=== PATIENT | female | born 1950 | race Caucasian/White ===

== ENCOUNTER 2016-11-15 20:46 | Inpatient (IN) | payer OTHER ==
[2016-11-15] VITALS (16 sets, daily range): BP systolic 100–147; BP diastolic 52–98; PULSE 44–88; RESP 18–22; TEMP 97.6; O2SAT 96–99
[~2016-11-15] VITALS: Ht 157.5 cm; Wt 69.0 kg
[~2016-11-15 20:46] MED LIST: AMBI10TA PO; DIOV80TA4 PO; PROZ20CA11 PO
[2016-11-15] MEDS ORDERED: SODIUM CHLOR 0.9% 1000 ML INJ 1,000 ML IV SCH (21:12)
[2016-11-15] MEDS ORDERED: ONDANSETRON HCL 4 MG/2 ML VIAL IVP ONE (21:15)
[2016-11-15] MEDS ORDERED: HYDROmorphone HCL PF 2 MG/ML VIAL IVS ONE (21:15)
[2016-11-15] MEDS ORDERED: SODIUM CHLORIDE 0.9% FLUSH 5 ML FLUSH IVF PRN (21:15)
--- NOTE | 2016-11-15 21:29 | PD ---
HPI Chief Complaint: Flank/Kidney Pain Time Seen by Provider: 21:12 Travel History International Travel<30 days: No Contact w/Intl Traveler<30days: No History of Present Illness HPI Patient is a 66 year old female who presents to ER with c/o of left sided flank pain. Pt reports that flank pain began a few hours prior to presentation to ER. Patient reports that her pain has been constant, nonradiating in nature. Patient reports that she has had history of kidney stones in the past, reports that her symptoms feel similar to today's symptoms. Patient reports that she feels nauseous with her symptoms. Reports that she noticed some blood in her urine today as well. Patient denies fevers or chills at this time. Patient denies dysuria, urinary urgency or frequency. Patient reports that when she has had kidney stones in the past, she has passed all her stones and did not require urologic interventions PFSH Past Medical History Anxiety: Yes Depression: Yes Diminished Hearing: No Hypertension: Yes Kidney Stones: Yes Immunizations Current: Yes Menopausal: Yes : 1 Para: 1 Tubal Ligation: Yes Past Surgical History Hysterectomy: Yes (PARTIAL, OOPHRECTOMY) Tonsillectomy: Yes Other Surgery: Yes (OOPHERECTOMY) Family History Family History: Negative Social History Alcohol Use: No Tobacco Use: No Substance Use: No Allergies-Medications (Allergen,Severity, Reaction): Coded Allergies: No Known Allergies (Verified , 11/15/16) Reported Meds & Prescriptions Reported Meds & Active Scripts Active Reported Zolpidem (Zolpidem Tartrate) 5 Mg Tab 5 Mg PO HS PRN Valsartan 80 Mg Tab 80 Mg PO DAILY Fluoxetine (Fluoxetine HCl) 20 Mg Cap 20 Mg PO DAILY Review of Systems Gastrointestinal: Positive: Nausea, Other (left sided flank pain), No: Abdominal Pain Genitourinary: Positive: Hematuria, No: Urgency, Frequency, Dysuria Physical Exam Narrative GENERAL: patient in moderate distress SKIN: Warm and dry. HEAD: Atraumatic. Normocephalic. EYES: Pupils equal and round. No scleral icterus. No injection or drainage. ENT: No nasal bleeding or discharge. Mucous membranes pink and moist. NECK: Trachea midline. No JVD. CARDIOVASCULAR: Regular rate and rhythm. No murmur appreciated. RESPIRATORY: No accessory muscle use. Clear to auscultation. Breath sounds equal bilaterally. GASTROINTESTINAL: Abdomen soft, non-tender, nondistended. left sided flank pain MUSCULOSKELETAL: No obvious deformities. No clubbing. No cyanosis. No edema. NEUROLOGICAL: Awake and alert. No obvious cranial nerve deficits. Motor grossly within normal limits. Normal speech. PSYCHIATRIC: Appropriate mood and affect; insight and judgment normal. Data Data Last Documented VS Vital Signs Date Time Temp Pulse Resp B/P Pulse Ox O2 Delivery O2 Flow Rate FiO2 11/15/16 22:10 96 3.00 11/15/16 21:13 20 11/15/16 20:53 97.6 88 146/98 Orders Complete Blood Count With Diff (11/15/16 21:12) Comprehensive Metabolic Panel (11/15/16 21:12) Prothrombin Time / Inr (Pt) (11/15/16 21:12) Act Partial Throm Time (Ptt) (11/15/16 21:12) Urinalysis - C+S If Indicated (11/15/16 21:12) Ct Abd/Pel W/O Iv Contrast (11/15/16 21:12) Iv Access Insert/Monitor (11/15/16 21:12) Hydromorphone Pf Inj (Dilaudid Pf Inj) (11/15/16 21:15) Ondansetron Inj (Zofran Inj) (11/15/16 21:15) Sodium Chlor 0.9% 1000 Ml Inj (Ns 1000 M (11/15/16 21:12) Sodium Chloride 0.9% Flush (Ns Flush) (11/15/16 21:15) Electrocardiogram (11/15/16 22:17) B-Type Natriuretic Peptide (11/15/16 22:17) Chest, Single Ap (11/15/16 22:17) Blood Culture (11/15/16 22:23) Naloxone Inj (Narcan Inj) (11/15/16 22:30) Ckmb (Isoenzyme) Profile (11/15/16 21:40) Troponin I (11/15/16 21:40) Ecg Monitoring (11/15/16 22:27) Oximetry (11/15/16 22:27) Oxygen Administration (11/15/16 22:27) Sodium Chlor 0.9% 1000 Ml Inj (Ns 1000 M (11/15/16 22:45) Ct Brain W/O Iv Contrast(Rout) (11/15/16 22:35) CKMB (11/15/16 21:40) CKMB% (11/15/16 21:40) Aspirin Supp (Aspirin Supp) (11/15/16 23:00) Labs Laboratory Tests Test 11/15/16 21:40 White Blood Count 12.5 TH/MM3 Red Blood Count 3.84 MIL/MM3 Hemoglobin 11.8 GM/DL Hematocrit 35.4 % Mean Corpuscular Volume 92.1 FL Mean Corpuscular Hemoglobin 30.8 PG Mean Corpuscular Hemoglobin 33.5 % Concent Red Cell Distribution Width 12.1 % Platelet Count 268 TH/MM3 Mean Platelet Volume 7.7 FL Neutrophils (%) (Auto) 85.8 % Lymphocytes (%) (Auto) 6.2 % Monocytes (%) (Auto) 7.3 % Eosinophils (%) (Auto) 0.2 % Basophils (%) (Auto) 0.5 % Neutrophils # (Auto) 10.7 TH/MM3 Lymphocytes # (Auto) 0.8 TH/MM3 Monocytes # (Auto) 0.9 TH/MM3 Eosinophils # (Auto) 0.0 TH/MM3 Basophils # (Auto) 0.1 TH/MM3 CBC Comment DIFF FINAL Differential Comment Prothrombin Time 11.2 SEC Prothromb Time International 1.0 RATIO Ratio Activated Partial 30.9 SEC Thromboplast Time Sodium Level 143 MEQ/L Potassium Level 3.8 MEQ/L Chloride Level 108 MEQ/L Carbon Dioxide Level 25.4 MEQ/L Anion Gap 10 MEQ/L Blood Urea Nitrogen 23 MG/DL Creatinine 1.00 MG/DL Estimat Glomerular Filtration 56 ML/MIN Rate Random Glucose 111 MG/DL Calcium Level 8.1 MG/DL Total Bilirubin 0.3 MG/DL Aspartate Amino Transf 13 U/L (AST/SGOT) Alanine Aminotransferase 14 U/L (ALT/SGPT) Alkaline Phosphatase 80 U/L Total Creatine Kinase 102 U/L Creatine Kinase MB 0.9 NG/ML Troponin I 0.05 NG/ML Total Protein 6.3 GM/DL Albumin 3.1 GM/DL MDM Medical Decision Making Medical Screen Exam Complete: Yes Emergency Medical Condition: Yes Interpretation(s) Vital Signs Date Time Temp Pulse Resp B/P Pulse Ox O2 Delivery O2 Flow Rate FiO2 11/15/16 21:13 20 11/15/16 20:53 97.6 88 22 146/98 99 Differential Diagnosis kidney stone, pyelonephritis, musculoskeletal pain Narrative Course Patient is a 66-year-old female who presents to emergency room with complaints of left sided flank pain. Onset of pain was a few hours prior to presentation to emergency room. Patient with history of kidney stones in the past. Patient comfortable on evaluation, IV was placed upon arrival to emergency room. Patient given IV pain medications as well as nausea medications as well as IV fluids. CBC, BMP, UA ordered as well as CT abdomen and pelvis for further evaluation of symptoms. Patient returned from CAT scan and was talking to her daughter. Daughter reports that patient stopped talking and turned blue. RN and staff at bedside, patient was in PEA arrest. CPR initiated and patient was Bagged. After 45 seconds of being bagged, patient had spontaneous regain of pulses, after patient began to breath spontaneously, narcan 0.4 mg was given to patient as I was not sure if patient had this event because of reaction to Dilaudid 1mg given for pain 50 minute prior to cardiac arrest. Patient at this time c/o of chest pain. EKG obtained. Pt with NSR at 87bpm, qt/qtc: 330/377, pt with st seg depression lateral leads. BS was in the 130's case reviewed with Dr. Fox Nieto who accepts pt to his service at [facility] ICU Patient re-evaluated. Patient is alert and oriented x 3. Patient reports "I just don't feel well." Discussed with patient need for admission to [facility] ICU. Patient agreeable to admission Critical Care Narrative Aggregate critical care time was 35 minutes. Time to perform other separately billable procedures was not included in the critical care time. My time did not include minutes spent treating any other patients simultaneously or on activities that did not directly contribute to the patient's treatment. The services I provided to this patient were to treat and/or prevent clinically significant deterioration that could result in: , decompensation, deterioration I provided critical care services requiring my management, as noted below: Chart data review, documentation time, medication orders and management, vital sign assessments/reviewing monitor data, ordering and reviewing lab tests, ordering and interpreting/reviewing x-rays and diagnostic studies, care of the patient and discussion of the patient with the admitting physicians. Diagnosis Primary Impression: Successful cardiopulmonary resuscitation Additional Impression: Kidney stone on left side Admitting Information Admitting Physician Requests: Admit Rosa Isela Iglesias DO Nov 15, 2016 21:29
--- NOTE | 2016-11-15 21:47 | RADHPO ---
EXAM DATE/TIME: 11/15/2016 21:25 [facility] COMPARISON: No previous studies available for comparison. INDICATIONS : Left flank pain with hematuria. ORAL CONTRAST: No oral contrast ingested. RADIATION DOSE: 12.63 CTDIvol (mGy) MEDICAL HISTORY : Hypertension. Renal calculi. SURGICAL HISTORY : Tubal ligation. Hysterectomy. Oophorectomy. ENCOUNTER: Initial ACUITY: 1 day PAIN SCALE: 7/10 LOCATION: Left flank TECHNIQUE: Volumetric scanning of the abdomen and pelvis was performed. Using automated exposure control and ad justment of the mA and/or kV according to patient size, radiation dose was kept as low as reasonably achievable to obtain optimal diagnostic quality images. FINDINGS: The lung bases are clear. The portion of the liver and spleen identified are free of focal defects. The pancreas and adrenal glands are unremarkable. RIGHT KIDNEY: The right kidney is unremarkable. LEFT KIDNEY: Left kidney is large with one nonobstructing stone in the pelvis. There is prominence to the left ur eter extending down to the distal third of the left ureter where there is a 4 mm partially obstructin g stone. Pelvic contents are otherwise unremarkable. CONCLUSION: 4 mm partially obstructing stone distal third of the ureter just above the UVJ. Rico Muñoz MD FACR on November 15, 2016 at 21:39 Board Certified Radiologist. This report was verified electronically.
[2016-11-15] MEDS ORDERED: VALS1TAB64 PO (21:52)
[2016-11-15] MEDS ORDERED: FLUO20CA4 PO (21:52)
[2016-11-15] MEDS ORDERED: ZOLP5TAB3 PO (21:52)
[2016-11-15 21:56] LABS: AUTOMATED NEUTROPHIL # 10.7 TH/MM3 (1.8-7.7); BASOPHIL # 0.1 TH/MM3 (0-0.2); BASOPHIL % 0.5 % (0.0-2.0); EOSINOPHIL % 0.2 % (0.0-4.0); HEMATOCRIT 35.4 % (35.0-46.0); LYMPH % 6.2 % (9.0-44.0); LYMPHOCYTE # 0.8 TH/MM3 (1.0-4.8); MEAN CELL VOLUME 92.1 FL (80.0-100.0); MEAN CORPUSCULAR HEMOGLOBIN 30.8 PG (27.0-34.0); MEAN CORPUSCULAR HGB CONC 33.5 % (32.0-36.0); MONO % 7.3 % (0.0-8.0); NEUT % 85.8 % (16.0-70.0); PLATELET COUNT 268 TH/MM3 (150-450); RED BLOOD COUNT 3.84 MIL/MM3 (4.00-5.30); RED CELL DISTRIBUTION WIDTH 12.1 % (11.6-17.2); WHITE BLOOD COUNT 12.5 TH/MM3 (4.0-11.0)
[2016-11-15 22:01] LABS: HEMO FLAGS DIFF FINAL
[2016-11-15 22:05] LABS: CHLORIDE 108 MEQ/L (98-107); POTASSIUM 3.8 MEQ/L (3.5-5.1); SODIUM (NA) 143 MEQ/L (136-145)
[2016-11-15 22:08] LABS: ANION GAP 10 MEQ/L (5-15); BICARBONATE 25.4 MEQ/L (21.0-32.0); BLOOD UREA NITROGEN 23 MG/DL (7-18)
[2016-11-15 22:12] LABS: ALT (GPT) 14 U/L (10-53); AST (GOT) 13 U/L (15-37); GLOMERULAR FILTRATION RATE 56 ML/MIN (>89)
[2016-11-15 22:13] LABS: APTT (PATIENT) 30.9 SEC (24.3-30.1); PROTHROMBIN TIME - PATIENT 11.2 SEC (9.8-11.6); TOTAL BILIRUBIN ADULT 0.3 MG/DL (0.2-1.0)
[2016-11-15 22:15] LABS: ALKALINE PHOSPHATASE 80 U/L (45-117)
[2016-11-15] MEDS ORDERED: NALOXONE HCL 0.4 MG/ML AMP IV PUSH ONE (22:30)
[2016-11-15 22:39] LABS: CREATINE KINASE 102 U/L (26-192)
--- NOTE | 2016-11-15 22:43 | RADHPO ---
EXAM DATE/TIME: 11/15/2016 22:19 [facility] COMPARISON: No previous studies available for comparison. INDICATIONS : Chest pain. MEDICAL HISTORY : Hypertension. SURGICAL HISTORY : None. ENCOUNTER: Initial ACUITY: 1 day PAIN SCORE: 11/11 LOCATION: Bilateral chest FINDINGS: A single view of the chest demonstrates the lungs to be symmetrically aerated without evidence of mas s, infiltrate or effusion. The cardiomediastinal contours are unremarkable. Degenerative changes ar e present about both shoulders. CONCLUSION: No acute disease. Rico Muñoz MD FACR on November 15, 2016 at 22:41 Board Certified Radiologist. This report was verified electronically.
[2016-11-15] MEDS ORDERED: SODIUM CHLOR 0.9% 1000 ML INJ 1,000 ML IV ONE (22:45)
[2016-11-15 22:51] LABS: CKMB 0.9 NG/ML (0.5-3.6)
--- NOTE | 2016-11-15 22:53 | RADHPO ---
EXAM DATE/TIME: 11/15/2016 22:35 [facility] COMPARISON: CT BRAIN W/O CONTRAST, May 07, 2015, 12:26. INDICATIONS : Post-code cardiac arrest. No trauma. RADIATION DOSE: 60.63 CTDIvol (mGy) MEDICAL HISTORY : Hypertension. Renal calculi. SURGICAL HISTORY : Hysterectomy. Tubal ligation.Tonsillectomy. ENCOUNTER: Initial ACUITY: 1 day PAIN SCALE: 0/10 LOCATION: cranial TECHNIQUE: Multiple contiguous axial images were obtained of the head. Using automated exposure control and adj ustment of the mA and/or kV according to patient size, radiation dose was kept as low as reasonably a chievable to obtain optimal diagnostic quality images. FINDINGS: CEREBRUM: The ventricles are normal for age. No evidence of midline shift, mass lesion, hemorrhage or acute in farction. No extra-axial fluid collections are seen. POSTERIOR FOSSA: The cerebellum and brainstem are intact. The 4th ventricle is midline. The cerebellopontine angle i s unremarkable. EXTRACRANIAL: The visualized portion of the orbits is intact. SKULL: The calvaria is intact. No evidence of skull fracture. Minimal left maxillary sinus disease is evid ent. CONCLUSION: Negative for acute process. Rico Muñoz MD FACR on November 15, 2016 at 22:51 Board Certified Radiologist. This report was verified electronically.
[2016-11-15] MEDS ORDERED: ASPIRIN 300 MG SUPP RECTAL ONE (23:00)
[2016-11-15 23:07] LABS: BLOOD, URINE LARGE (NEG); GLUCOSE,URINE NEG (NEG); KETONE, URINE NEG (NEG); NITRITE,URINE NEG (NEG)
--- NOTE | 2016-11-15 23:24 | HHI.HP ---
HPI Service Critical Care Medicine Primary Care Physician Gamaliel Adam MD Admission Diagnosis s/p cardiac arrest Diagnosis: Chief Complaint: Left flank pain (Left ureteral stone) Travel History International Travel<30 Days: No Contact w/Intl Traveler <30 Da: No History of Present Illness 66 y/o woman presented to [facility] ED with flank pain. CT shows obstructing distal left ureteral stone. Sustained PEA arrest after returning from CT scan, required 45 secs to restore perfusion rhythm. No signs of allergic reaction. Head CT normal, CXR clear after arrest. Trop, BNP normal. Noteworthy is that she participated in a 3 mile organized walk earlier today in [place] and appeared dehydrated on arrival to ED. She states she was short of breath when she arrived to the ED well before her cardiac arrest. Making arrangements to transfer to [facility]. She has passed kidney stones 3 times before. Past Family Social History Allergies: Coded Allergies: Dilaudid (Verified Allergy, Severe, cardiac arrest, 11/16/16) Past Medical History Past Medical History Anxiety: Yes Depression: Yes Diminished Hearing: No Hypertension: Yes Kidney Stones: Yes Immunizations Current: Yes Menopausal: Yes : 1 Para: 1 Tubal Ligation: Yes Past Surgical History Hysterectomy: Yes (PARTIAL, OOPHRECTOMY) Tonsillectomy: Yes Other Surgery: Yes (OOPHERECTOMY) Family History Family History: Negative Social History Alcohol Use: No Tobacco Use: No Substance Use: No Allergies-Medications Allergies-Medications (Allergen,Severity, Reaction): Coded Allergies: No Known Allergies (Verified , 11/15/16) Reported Meds & Prescriptions Reported Meds & Active Scripts Active Reported Zolpidem (Zolpidem Tartrate) 5 Mg Tab 5 Mg PO HS PRN Valsartan 80 Mg Tab 80 Mg PO DAILY Fluoxetine (Fluoxetine HCl) 20 Mg Cap 20 Mg PO DAILY Physical Exam Vital Signs Vital Signs Date Time Temp Pulse Resp B/P Pulse Ox O2 Delivery O2 Flow Rate FiO2 11/15/16 22:10 96 3.00 11/15/16 21:13 20 11/15/16 21:12 95 Nasal Cannula 2 11/15/16 20:53 97.6 88 22 146/98 99 Physical Exam P 82, BP 146, 78, R 16, Sats 97% Head: Atraumatic, sunburn to nose. Neck: Supple, airway widely patent. Lungs: Clear, no wheezes or crackles. Comfortable pattern. Chest: Tenderness over sternum. Heart: NL S1S2, no mr, No JVD. RRR. Abdomen: Soft, nontender, nondistended. Benign. Extremities: Warm, well perfused. No edema. Neuro: O X 3, alert, good memory. Amnesic for arrest. Moves 4 limbs to command. GAVIN. EOMs intact. Laboratory Laboratory Tests Test 11/15/16 21:40 White Blood Count 12.5 Red Blood Count 3.84 Hemoglobin 11.8 Hematocrit 35.4 Mean Corpuscular Volume 92.1 Mean Corpuscular Hemoglobin 30.8 Mean Corpuscular Hemoglobin 33.5 Concent Red Cell Distribution Width 12.1 Platelet Count 268 Mean Platelet Volume 7.7 Neutrophils (%) (Auto) 85.8 Lymphocytes (%) (Auto) 6.2 Monocytes (%) (Auto) 7.3 Eosinophils (%) (Auto) 0.2 Basophils (%) (Auto) 0.5 Neutrophils # (Auto) 10.7 Lymphocytes # (Auto) 0.8 Monocytes # (Auto) 0.9 Eosinophils # (Auto) 0.0 Basophils # (Auto) 0.1 CBC Comment DIFF FINAL Differential Comment Prothrombin Time 11.2 Prothromb Time International 1.0 Ratio Activated Partial 30.9 Thromboplast Time Sodium Level 143 Potassium Level 3.8 Chloride Level 108 Carbon Dioxide Level 25.4 Anion Gap 10 Blood Urea Nitrogen 23 Creatinine 1.00 Estimat Glomerular Filtration 56 Rate Random Glucose 111 Calcium Level 8.1 Total Bilirubin 0.3 Aspartate Amino Transf 13 (AST/SGOT) Alanine Aminotransferase 14 (ALT/SGPT) Alkaline Phosphatase 80 Total Creatine Kinase 102 Creatine Kinase MB 0.9 Troponin I 0.05 B-Type Natriuretic Peptide 25 Total Protein 6.3 Albumin 3.1 Date/Time Procedure Status Source Growth 11/15/16 22:55 Aerobic Blood Culture Received Blood Peripheral Pending 11/15/16 22:55 Anaerobic Blood Culture Received Blood Peripheral Pending Result Diagram: 11/15/16213911/15/162139 Assessment and Plan Problem List: (1) Kidney stone on left side ICD Code: N20.0 Status: Acute (2) Successful cardiopulmonary resuscitation ICD Code: Z92.89 Status: Acute Assessment and Plan Assessment: 1. Obstructing left ureteral stone. 2. Cardiac arrest with rapid successful resuscitation. 3. Hx of kidney stones. 4. Moderate dehydration. Plan: 1. Transfer to [facility]. 2. IV abx coverage. 3. Aggressive hydration. 4. heparin bid. 5. Protonix. 6. Serial cardiac markers. 7. Cardiac ECHO. 8. EKG. 9. Urology Consult in a.m. Overall impression: Successful and quick resuscitation from cardiac arrest. Trop , BNP normal. No chest pain aside from sternal tenderness. Her SOB well before the arrest may be an angina variant. Will check markers and ECHO. May benefit from Cardiology evaluation; certainly if anesthetic is planned for stone removal. Fox Nieto MD Nov 15, 2016 23:24
[2016-11-15 23:26] LABS: METHOD OF COLLECTION VOIDED; URINE COLOR DARK-YELLOW (YELLW/STRAW)
[2016-11-15 23:27] LABS: BACTERIA, URINE RARE /hpf; COMMENT (UR) CULT NOT INDICATED; CULTURE IF INDICATED CULT NOT INDICATED; RBC, URINE INNUM /hpf (0-3); SQUAMOUS EPITHELIAL CELL URINE 0-2 /hpf (0-5); WBC, URINE 0-2 /hpf (0-5)
[2016-11-15] MEDS ORDERED: METOPROLOL TARTRATE 25 MG TAB PO SCH (23:30)
[2016-11-15] MEDS ORDERED: MISCELLANEOUS NURSING INFORMATION XX SCH (23:30)
[2016-11-15] MEDS ORDERED: ONDANSETRON HCL 4 MG/2 ML VIAL IV PRN (23:30)
[2016-11-15] MEDS ORDERED: CHLORHEXIDINE GLUCONATE 2 % 1 PACK (2 CLOTHS) TOP PRN (23:30)
[2016-11-15] MEDS ORDERED: cefTRIAXone INJ 2,000 MG in SODIUM CHLORIDE 0.9% INJ 100 ML IV SCH ×9 (23:30→23:45)
[2016-11-15] MEDS ORDERED: RESP: ALBUTEROL 2.5 MG/IPRATROPIUM 0.5 MG NEB (PRN) INH (23:30)
[2016-11-15] MEDS ORDERED: ACETAMINOPHEN/HYDROcodone 325 MG/5 MG TAB PO PRN (23:45)
[2016-11-15] MEDS ORDERED: cefTRIAXone INJ 2,000 MG in SODIUM CHLORIDE 0.9% INJ 100 ML IV ONE (23:45)
[2016-11-16] VITALS (15 sets, daily range): BP systolic 96–160; BP diastolic 58–89; PULSE 51–82; RESP 14–22; TEMP 98–98.3; O2SAT 94–99
[2016-11-16] MEDS: METOPROLOL TARTRATE 25 MG TAB PO SCH ×3 (01:30→21:00)
[2016-11-16] MEDS: ZOLPIDEM TARTRATE 5 MG TAB PO PRN ×2 (01:45→23:01)
[2016-11-16] MEDS: CHLORHEXIDINE GLUCONATE 2 % 1 PACK (2 CLOTHS) TOP SCH (04:00)
[2016-11-16] MEDS: HEPARIN SODIUM - SQ 10,000 UNITS/ML VIAL SQ SCH ×3 (05:44→22:22)
[2016-11-16] MEDS: SODIUM CHLOR 0.9% 1000 ML INJ 1,000 ML IV SCH ×3 (06:06→22:24)
[2016-11-16] MEDS: KETOROLAC TROMETHAMINE 30 MG/ML (IVP) VIAL IM PRN (08:34)
[2016-11-16] MEDS: PANTOPRAZOLE SOD 40 MG DELAYED RELEASE TAB PO SCH (08:35)
[2016-11-16] MEDS: SODIUM CHLORIDE 0.9% FLUSH 5 ML FLUSH IV FLUSH SCH ×2 (08:35→22:23)
[2016-11-16] MEDS: FLUoxetine HCL 20 MG CAP PO SCH (08:35)
[2016-11-16] MEDS: VALSARTAN 80 MG TAB PO SCH (08:35)
[2016-11-16 11:01] LABS: AUTOMATED NEUTROPHIL # 5.7 TH/MM3 (1.8-7.7); BASOPHIL % 0.3 % (0.0-2.0); EOSINOPHIL # 0.1 TH/MM3 (0-0.4); EOSINOPHIL % 0.7 % (0.0-4.0); HEMATOCRIT 33.8 % (35.0-46.0); HEMO FLAGS DIFF FINAL; LYMPH % 12.3 % (9.0-44.0); LYMPHOCYTE # 0.9 TH/MM3 (1.0-4.8); MEAN CELL VOLUME 94.7 FL (80.0-100.0); MEAN CORPUSCULAR HEMOGLOBIN 31.2 PG (27.0-34.0); MONO % 12.3 % (0.0-8.0); NEUT % 74.4 % (16.0-70.0); PLATELET COUNT 197 TH/MM3 (150-450); RED BLOOD COUNT 3.57 MIL/MM3 (4.00-5.30); RED CELL DISTRIBUTION WIDTH 12.8 % (11.6-17.2); WHITE BLOOD COUNT 7.7 TH/MM3 (4.0-11.0)
[2016-11-16 11:13] LABS: BICARBONATE 26.5 MEQ/L (21.0-32.0); MAGNESIUM 1.8 MG/DL (1.5-2.5); POTASSIUM 4.2 MEQ/L (3.5-5.1)
--- NOTE | 2016-11-16 14:39 | PD.CONS ---
[facility] Service Urology Consult Requested By Reason for Consult Obstructing left ureteral calculus Primary Care Physician Gamaliel Adam MD Diagnosis: History of Present Illness 66-year-old female with history recurrent nephrolithiasis who presented to the emergency room with complaints of acute onset left flank pain. CT scan demonstrated an approximately 4 mm left distal ureteral calculus causing hydroureteronephrosis. Upon return from CT scanning the patient went into cardiac arrest and was successfully resuscitated. She was then transferred to the ICU for intense monitoring. At the time of consultation the patient was awake and alert with pain well controlled. She was complaining of pressure involving the left lower flank region. She denied dysuria or gross hematuria. Upon further questioning the patient reports that she has passed multiple stones in the past spontaneously. I reviewed the actual CT scan and in addition to the obstructing ureteral stone a small 2-3mm stone involving the left kidney was also noted. There were no stones involving the right kidney. Patient did have a Douglas catheter in place draining yellow urine. Review of Systems Constitutional: DENIES: Fever, Chills Cardiovascular: DENIES: Chest pain Gastrointestinal: COMPLAINS OF: Abdominal pain (left lower quadrant) Genitourinary: DENIES: Hematuria, Dysuria Musculoskeletal: COMPLAINS OF: Back pain (left lower flank) Other All other systems negative Past Family Social History Past Medical History Anxiety/depression Recurrent nephrolithiasis Hypertension Past Surgical History Status post hysterectomy and partial oophorectomy Status post tonsillectomy Reported Medications Refer to EMR Allergies: Coded Allergies: Dilaudid (Verified Allergy, Severe, cardiac arrest, 11/16/16) Active Ordered Medications Refer to EMR Family History Reviewed and noncontributory Social History Denies tobacco, alcohol or intravenous drug abuse Physical Exam Vital Signs Vital Signs Date Time Temp Pulse Resp B/P Pulse Ox O2 Delivery O2 Flow Rate FiO2 11/16/16 12:00 98.3 66 19 147/71 99 11/16/16 12:00 66 11/16/16 10:15 Nasal Cannula 2.00 11/16/16 10:00 58 11/16/16 08:00 98.1 66 19 160/82 97 11/16/16 08:00 55 11/16/16 07:00 98 Nasal Cannula 2.00 11/16/16 06:00 58 11/16/16 04:00 98.0 57 14 96/58 97 11/16/16 04:00 57 1/15/17 02:00 72 11/16/16 01:00 98.0 82 16 141/89 98 11/16/16 01:00 98 Nasal Cannula 2.00 11/16/16 01:00 80 11/16/16 00:20 88 20 105/59 98 11/16/16 00:00 80 20 108/59 98 Nasal Cannula 4 11/15/16 23:40 80 20 112/62 98 Nasal Cannula 4 11/15/16 23:20 84 20 108/60 98 11/15/16 23:10 86 20 100/52 98 11/15/16 23:00 88 20 110/62 98 11/15/16 22:50 72 18 120/67 98 Nasal Cannula 4 11/15/16 22:45 72 18 124/72 98 11/15/16 22:40 78 18 118/68 98 Nasal Cannula 4 11/15/16 22:35 65 18 124/72 96 Nasal Cannula 4 11/15/16 22:25 72 20 116/72 98 11/15/16 22:20 59 20 112/71 98 Nasal Cannula 4 11/15/16 22:15 62 20 118/74 97 Nasal Cannula 4 11/15/16 22:11 44 20 110/59 98 Nasal Cannula 4 11/15/16 22:10 96 3.00 11/15/16 22:00 84 20 132/76 97 Room Air 11/15/16 21:30 76 20 147/87 99 11/15/16 21:13 20 11/15/16 21:12 95 Nasal Cannula 2 11/15/16 20:53 97.6 88 22 146/98 99 Physical Exam GENERAL: This is a well-nourished, well-developed patient, in no apparent distress. SKIN: No rashes, ecchymoses or lesions. Cool and dry. HEAD: Atraumatic. Normocephalic. No temporal or scalp tenderness. EYES: Pupils equal round and reactive. Extraocular motions intact. No scleral icterus. No injection or drainage. ENT: Nose without bleeding, purulent drainage or septal hematoma. Throat without erythema, tonsillar hypertrophy or exudate. Uvula midline. Airway patent. NECK: Trachea midline. No JVD or lymphadenopathy. Supple, nontender, no meningeal signs. GASTROINTESTINAL: Abdomen soft, non-tender, nondistended. No hepato-splenomegaly , or palpable masses. No guarding. : No CVA tenderness. Douglas in place draining yellow urine. MUSCULOSKELETAL: Extremities without clubbing, cyanosis, or edema. No joint tenderness, effusion, or edema noted. No calf tenderness. Negative Homans sign bilaterally. NEUROLOGICAL: Awake and alert. Cranial nerves II through XII intact. Motor and sensory grossly within normal limits. Five out of 5 muscle strength in all muscle groups. Normal speech. Laboratory Laboratory Tests Test 11/15/16 11/15/16 11/16/16 11/16/16 21:40 22:50 00:20 01:00 White Blood Count 12.5 Red Blood Count 3.84 Hemoglobin 11.8 Hematocrit 35.4 Mean Corpuscular Volume 92.1 Mean Corpuscular Hemoglobin 30.8 Mean Corpuscular Hemoglobin 33.5 Concent Red Cell Distribution Width 12.1 Platelet Count 268 Mean Platelet Volume 7.7 Neutrophils (%) (Auto) 85.8 Lymphocytes (%) (Auto) 6.2 Monocytes (%) (Auto) 7.3 Eosinophils (%) (Auto) 0.2 Basophils (%) (Auto) 0.5 Neutrophils # (Auto) 10.7 Lymphocytes # (Auto) 0.8 Monocytes # (Auto) 0.9 Eosinophils # (Auto) 0.0 Basophils # (Auto) 0.1 CBC Comment DIFF FINAL Differential Comment Prothrombin Time 11.2 Prothromb Time International 1.0 Ratio Activated Partial 30.9 Thromboplast Time Sodium Level 143 Potassium Level 3.8 Chloride Level 108 Carbon Dioxide Level 25.4 Anion Gap 10 Blood Urea Nitrogen 23 Creatinine 1.00 Estimat Glomerular Filtration 56 Rate Random Glucose 111 Calcium Level 8.1 Total Bilirubin 0.3 Aspartate Amino Transf 13 (AST/SGOT) Alanine Aminotransferase 14 (ALT/SGPT) Alkaline Phosphatase 80 Total Creatine Kinase 102 Creatine Kinase MB 0.9 Troponin I 0.05 0.07 B-Type Natriuretic Peptide 25 Total Protein 6.3 Albumin 3.1 Urine Collection Type VOIDED Urine Color DARK-YELLOW Urine Turbidity SLIGHT Urine pH 6.0 Urine Specific [place] 1.012 Urine Protein 30 Urine Glucose (UA) NEG Urine Ketones NEG Urine Occult Blood LARGE Urine Nitrite NEG Urine Bilirubin NEG Urine Leukocyte Esterase NEG Urine RBC INNUM Urine WBC 0-2 Urine Squamous Epithelial 0-2 Cells Urine Bacteria RARE Microscopic Urinalysis Comment CULT NOT INDICATED Nasal Screen MRSA (PCR) NEGATIVE Test 11/16/16 10:34 White Blood Count 7.7 Red Blood Count 3.57 Hemoglobin 11.1 Hematocrit 33.8 Mean Corpuscular Volume 94.7 Mean Corpuscular Hemoglobin 31.2 Mean Corpuscular Hemoglobin 33.0 Concent Red Cell Distribution Width 12.8 Platelet Count 197 Mean Platelet Volume 8.0 Neutrophils (%) (Auto) 74.4 Lymphocytes (%) (Auto) 12.3 Monocytes (%) (Auto) 12.3 Eosinophils (%) (Auto) 0.7 Basophils (%) (Auto) 0.3 Neutrophils # (Auto) 5.7 Lymphocytes # (Auto) 0.9 Monocytes # (Auto) 0.9 Eosinophils # (Auto) 0.1 Basophils # (Auto) 0.0 CBC Comment DIFF FINAL Differential Comment Sodium Level 145 Potassium Level 4.2 Chloride Level 114 Carbon Dioxide Level 26.5 Anion Gap 5 Blood Urea Nitrogen 19 Creatinine 0.99 Estimat Glomerular Filtration 56 Rate Random Glucose 88 Lactic Acid Level 1.2 Calcium Level 7.6 Phosphorus Level 3.1 Magnesium Level 1.8 Troponin I 0.13 Date/Time Procedure Status Source Growth 11/15/16 22:55 Aerobic Blood Culture - Preliminary Resulted Blood Peripheral NO GROWTH IN 1 DAY 11/15/16 22:55 Anaerobic Blood Culture - Preliminary Resulted Blood Peripheral NO GROWTH IN 1 DAY Result Diagram: 11/16/16 1034 11/16/[address] scan with findings as outlined above Assessment and Plan Assessment and Plan Urologic impression: #1 4 mm obstructing left distal ureteral calculus that should pass spontaneously #2 nonobstructing small left renal calculus Recommendations: #1 continue with analgesic support #2 strain all urine #3 Flomax 0.4 mg by mouth daily #4 KUB tomorrow morning #5 May require ureteroscopic stone extraction if stone fails to pass with conservative management Hernandez Carpio MD Nov 16, 2016 14:39
[2016-11-16] MEDS: TAMSULOSIN HCL 0.4 MG CAP PO SCH (14:51)
--- NOTE | 2016-11-16 15:30 | HHI.CCPN ---
Subjective Remarks/Hospital Course 66 y/o woman presented to [facility] ED with flank pain. CT shows obstructing distal left ureteral stone. Sustained PEA arrest after returning from CT scan, required 45 secs to restore perfusion rhythm. No signs of allergic reaction. Head CT normal, CXR clear after arrest. Trop, BNP normal. Noteworthy is that she participated in a 3 mile organized walk earlier today in [place] and appeared dehydrated on arrival to ED. She states she was short of breath when she arrived to the ED well before her cardiac arrest. Making arrangements to transfer to [facility]. Objective Vital Signs Date Time Temp Pulse Resp B/P Pulse Ox O2 Delivery O2 Flow Rate FiO2 11/16/16 14:00 57 11/16/16 12:00 98.3 19 147/71 99 11/16/16 10:15 Nasal Cannula 2.00 Result Diagram: 11/16/16 1034 11/16/16 1034 Objective Remarks P 82, BP 146, 78, R 16, Sats 97% Head: Atraumatic, sunburn to nose. Neck: Supple, airway widely patent. Lungs: Clear, no wheezes or crackles. Comfortable pattern. Chest: Tenderness over sternum. Heart: NL S1S2, no mr, No JVD. RRR. Abdomen: Soft, nontender, nondistended. Benign. Extremities: Warm, well perfused. No edema. Neuro: O X 3, alert, good memory. Amnesic for arrest. Moves 4 limbs to command. GAVIN. EOMs intact. A/P Problem List: (1) Kidney stone on left side ICD Code: N20.0 Status: Acute (2) Successful cardiopulmonary resuscitation ICD Code: Z92.89 Status: Acute Assessment and Plan Assessment: Obstructing left ureteral stone. - IV abx coverage. - Aggressive hydration - Urology evaluationm - pain control (NSAIDs) Cardiac arrest with rapid successful resuscitation - not clear if ever pals less - cardiac enzyme - EKG w/o ischemic changes - Echo - Cardiology evaluation JENNIFER - dehydration - i.v. fluids Overall impression: Successful and quick resuscitation from cardiac arrest. Trop , BNP normal. No chest pain aside from sternal tenderness. Her SOB well before the arrest may be an angina variant. Will check markers and ECHO. May benefit from Cardiology evaluation; certainly if anesthetic is planned for stone removal. Level 3 Dameon Clarke MD Nov 16, 2016 15:30
--- NOTE | 2016-11-16 16:46 | EC ---
Study Study Date:11/16/2016 STUDY CONCLUSIONS SUMMARY - Left ventricle: The cavity size was normal. Wall thickness was normal. Systolic function was normal. The estimated ejection fraction was in the range of 50% to 55%. Wall motion was normal; there were no regional wall motion abnormalities. - Mitral valve: Mild regurgitation. - Tricuspid valve: Mild regurgitation. - Pulmonary arteries: Systolic pressure was mildly increased. PA peak pressure: 41mm Hg (S). If LV function is below 40, please consider prescribing an ACEI or ARB or document rationale for non-use. PROCEDURE DATA STUDY STATUS: Elective. Procedure: Transthoracic echocardiography. Image quality was good. Scanning was performed from the parasternal, apical, and subcostal acoustic windows. Study completion: The patient tolerated the procedure well. Transthoracic echocardiography. M-mode, complete 2D, complete spectral Doppler, and color Doppler. Patient status: Inpatient. CARDIAC ANATOMY LEFT VENTRICLE: The cavity size was normal. Wall thickness was normal. Systolic function was normal. The estimated ejection fraction was in the range of 50% to 55%. Wall motion was normal; there were no regional wall motion abnormalities. AORTIC VALVE: Trileaflet; normal thickness leaflets. Doppler: Transvalvular velocity was within the normal range. There was no stenosis. No regurgitation. AORTA: Aortic root: The aortic root was normal in size. MITRAL VALVE: Structurally normal valve. Doppler: Transvalvular velocity was within the normal range. There was no evidence for stenosis. Mild regurgitation. LEFT ATRIUM: The atrium was normal in size. RIGHT VENTRICLE: The cavity size was normal. Wall thickness was normal. PULMONIC VALVE: Doppler: Transvalvular velocity was within the normal range. There was no evidence for stenosis. Trace regurgitation. TRICUSPID VALVE: Structurally normal valve. Doppler: Transvalvular velocity was within the normal range. Mild regurgitation. PULMONARY ARTERY: The main pulmonary artery was normal-sized. Systolic pressure was mildly increased. RIGHT ATRIUM: The atrium was normal in size. PERICARDIUM: There was no pericardial effusion. SYSTEMIC VEINS: Inferior vena cava: The vessel was normal in size. DOPPLER MEASUREMENTS ADULT NORMAL Main pulmonary artery Pressure, S *41 mm Hg =30 LEGEND: Mean values are shown as u=mean value. Asterisk (*) torrez values outside specified normal range. Prepared and signed by Ovidio Gomez [id number]
--- NOTE | 2016-11-16 17:17 | MB ---
cc: STACIA LEAL MD DATE OF CONSULTATION: 11/16/2016. REASON FOR CONSULTATION: Status post PEA arrest. HISTORY OF PRESENT ILLNESS: The patient is a very pleasant 66-year-old woman with no prior cardiac history who did have periodic shortness of breath for which she was treated with an metered dose inhaler from her pulmonary doctor. She was in the [place] emergency room being treated for kidney stones when by report she turned blue, lost her pulses and a code blue was initiated. I am trying to piece together the sequence of events from the chart and as best I can tell, she did not have any change in her rhythm ,only a loss of consciousness with loss of palpable pulses consistent with PEA. After being bagged with CPR, she regained consciousness. Narcan was also given as she did receive Demerol some time prior to the event. Following resuscitation, she generally felt unwell and had sternal tenderness from the CPR but no specific symptoms. Currently she feels well, denying any symptoms at all such as chest pain, shortness of breath, lightheadedness or dizziness but did admit to occasional shortness of breath as I detailed above. PAST MEDICAL HISTORY: Negative for cardiac history including negative history for syncopal episodes. CURRENT MEDICATIONS: 1. Valsartan 80 milligrams daily. 2. Prozac 20 milligrams daily. 3. Lopressor 25 milligrams q. 12. ALLERGIES: DILAUDID. PHYSICAL EXAMINATION: VITAL SIGNS: Afebrile, pulse 66, respiratory rate 19, blood pressure 147/71 and satting 99 on two liters. GENERAL: A pleasant well-appearing woman in no distress. NECK: No jugular venous distention. LUNGS: Clear to auscultation bilaterally. CARDIOVASCULAR: Regular rate and rhythm. No murmurs appreciated. ABDOMEN: Benign. EXTREMITIES: No edema. LABORATORY DATA: Sodium 145, potassium 4.2, chloride 114, bicarb 26.5, BUN 19, creatinine 0.99, glucose 88. Troponin is 0.07, 0.13. BNP is 25. EKGS: EKG showed sinus rhythm with nonspecific ST changes. IMAGING STUDIES: Head CT was negative. IMPRESSION: PEA arrest: The patient had a PEA arrest for unclear reasons. I suppose it is possible she had a severe vagal response to pain, though more typically we would see decreased heart rates due to an isolated drop in her blood pressure. Other possibilities are a medication reaction. I think it is reasonable to exclude cardiac pathology with a stress test and echocardiogram, which will be ordered. Further recommendations will be based on her clinical course. Thank you again for the opportunity to participate in this patient's care. MD ADELITA Patino/RACHAEL /1:39 PM /5:05 PM
[2016-11-16] MEDS ORDERED: cefTRIAXone INJ 2,000 MG in SODIUM CHLORIDE 0.9% INJ 100 ML IV SCH (23:00)
[2016-11-16] MEDS: ACETAMINOPHEN 325 MG TAB PO PRN (23:01)
[2016-11-17] MEDS: SODIUM CHLOR 0.9% 1000 ML INJ 1,000 ML IV SCH ×2 (02:13→15:26)
[2016-11-17 02:34] VITALS: O2SAT 95
[2016-11-17 02:50] VITALS: BP 109/57; PULSE 61; RESP 16; TEMP 96.9; O2SAT 95
[2016-11-17] MEDS: CHLORHEXIDINE GLUCONATE 2 % 1 PACK (2 CLOTHS) TOP SCH (04:00)
[2016-11-17] MEDS: HEPARIN SODIUM - SQ 10,000 UNITS/ML VIAL SQ SCH ×3 (06:00→21:02)
[2016-11-17 06:03] LABS: BASOPHIL % 0.3 % (0.0-2.0); EOSINOPHIL # 0.1 TH/MM3 (0-0.4); EOSINOPHIL % 1.3 % (0.0-4.0); HEMO FLAGS DIFF FINAL; LYMPH % 18.7 % (9.0-44.0); LYMPHOCYTE # 1.7 TH/MM3 (1.0-4.8); MEAN CELL VOLUME 94.8 FL (80.0-100.0); MEAN CORPUSCULAR HEMOGLOBIN 30.7 PG (27.0-34.0); MEAN CORPUSCULAR HGB CONC 32.4 % (32.0-36.0); MONO % 12.8 % (0.0-8.0); NEUT % 66.9 % (16.0-70.0); PLATELET COUNT 173 TH/MM3 (150-450); RED CELL DISTRIBUTION WIDTH 13.1 % (11.6-17.2); WHITE BLOOD COUNT 8.9 TH/MM3 (4.0-11.0)
[2016-11-17 06:36] LABS: ALKALINE PHOSPHATASE 61 U/L (45-117); ALT (GPT) 84 U/L (10-53); ANION GAP 9 MEQ/L (5-15); AST (GOT) 59 U/L (15-37); BICARBONATE 23.1 MEQ/L (21.0-32.0); BLOOD UREA NITROGEN 23 MG/DL (7-18); CHLORIDE 114 MEQ/L (98-107); GLOMERULAR FILTRATION RATE 35 ML/MIN (>89); MAGNESIUM 1.8 MG/DL (1.5-2.5); POTASSIUM 4.3 MEQ/L (3.5-5.1); SODIUM (NA) 146 MEQ/L (136-145); TOTAL BILIRUBIN ADULT 0.2 MG/DL (0.2-1.0)
[2016-11-17 08:00] VITALS: BP 131/82; PULSE 68; RESP 18; TEMP 97.1; O2SAT 92
[2016-11-17] MEDS ORDERED: REGADENOSON INJ 0.4 MG/5 ML SYR ONE (08:55)
--- NOTE | 2016-11-17 09:16 | RADRPT ---
EXAM DATE/TIME: 11/17/2016 08:06 [facility] COMPARISON: No previous studies available for comparison. INDICATIONS : Left flank pain MEDICAL HISTORY : Hypertension. Renal calculi. SURGICAL HISTORY : tubal ligation, hysterectomy, oophorectomy ENCOUNTER: Subsequent ACUITY: 2 days PAIN SCORE: 0/10 LOCATION: Left abdomen FINDINGS: Supine view of the abdomen was performed. The abdominal bowel gas pattern is normal. No abnormal ma sses, calcifications, or organomegaly is seen. The osseous structures are unremarkable. CONCLUSION: 1. No renal stones are identified. Ajay Swenson MD on November 17, 2016 at 9:14 Board Certified Radiologist. This report was verified electronically.
[2016-11-17] MEDS ORDERED: PNEUMOCOCCAL POLYVALENT INJ 25 MCG/0.5 ML SYR IM ONE (10:00)
[2016-11-17] MEDS: SODIUM CHLORIDE 0.9% FLUSH 5 ML FLUSH IV FLUSH SCH ×2 (10:28→21:02)
[2016-11-17] MEDS: PANTOPRAZOLE SOD 40 MG DELAYED RELEASE TAB PO SCH (10:29)
[2016-11-17] MEDS: FLUoxetine HCL 20 MG CAP PO SCH (10:29)
[2016-11-17] MEDS: VALSARTAN 80 MG TAB PO SCH (10:30)
[2016-11-17] MEDS: TAMSULOSIN HCL 0.4 MG CAP PO SCH (10:30)
[2016-11-17] MEDS: METOPROLOL TARTRATE 25 MG TAB PO SCH ×2 (10:36→21:01)
--- NOTE | 2016-11-17 10:47 | RADRPT ---
EXAM DATE/TIME: 11/17/2016 08:31 [facility] COMPARISON: No previous studies available for comparison. INDICATIONS : Cardiac arrest. Presented with dyspnea then lost consciousness and palpable pulse requiring CPR to be administered. Abnormal EKG. DOSE: 8.7 mCi Tc99m Myoview at stress. 25.7 mCi Tc99m Myoview at rest. 0.4 mg Lexiscan STRESS SYMPTOMS: Headache. EJECTION FRACTION: 67% MEDICAL HISTORY : Hypertension. SURGICAL HISTORY : Hysterectomy. Tubal ligation. Tonsillectomy. ENCOUNTER: Initial ACUITY: 1 day PAIN SCALE: 0/10 LOCATION: chest TECHNIQUE: The patient underwent pharmacologic stress with infusion of prescribed dose. Continuous ECG tracing was monitored during stress. Gated SPECT imaging was performed after stress and conventional SPECT i maging was performed at rest. The examination was performed on a SPECT/CT scanner, both attenuation and non-corrected datasets were reviewed. FINDINGS: The best perfused myocardium in the anterior wall followed by the septum. There is no evidence for s tress-induced ischemia. Ejection fraction is 67% with normal wall motion. CONCLUSION: Negative for stress-induced ischemia.. RISK CATEGORY: Low (<1% Annual Mortality Rate) Rico Muñoz MD FACR on November 17, 2016 at 10:43 Board Certified Radiologist. This report was verified electronically.
--- NOTE | 2016-11-17 10:53 | PD.CARD.PN ---
Subjective Subjective Remarks Pt feels well, but obviously very concerned about the events that transpired. Objective Medications Administered Medications Medications (Trade) Dose Ordered Sig/Yunior Route PRN Reason Start Time Stop Time Status Last Admin Dose Admin Sodium Chloride (NS 1000 ml Inj) 1,000 ml @ 100 mls/hr Q10H IV 11/15/16 23:26 11/17/16 02:13 IV Flush (NS Flush) 2 ml BID IV FLUSH 11/16/16 09:00 11/17/16 10:28 Acetaminophen (Tylenol) 650 mg Q6H PRN PO PAIN 1-10 AND/OR FEVER >101F 11/15/16 23:30 11/16/16 23:01 Fentanyl Citrate (fentaNYL INJ) 50 mcg Q1H PRN IV PUSH Pain scale 6-10 &/or sedation 11/15/16 23:30 11/16/16 12:48 Pantoprazole Sodium (Protonix) 40 mg DAILY PO 11/16/16 09:00 11/17/16 10:29 Ondansetron HCl (Zofran Inj) 4 mg Q6H PRN IV NAUSEA OR VOMITING 11/15/16 23:30 11/16/16 12:47 Heparin Sodium (Porcine) 5000 units 5,000 units Q8HR SQ 11/16/16 06:00 11/16/16 22:22 Ceftriaxone Sodium/Sodium Chloride (Rocephin Inj/NS Inj) 100 ml @ 200 mls/hr Q24H IV 11/16/16 23:00 11/16/16 22:23 Fluoxetine HCl (PROzac) 20 mg DAILY PO 11/16/16 09:00 11/17/16 10:29 Valsartan (Diovan) 80 mg DAILY PO 11/16/16 09:00 11/17/16 10:30 Zolpidem Tartrate (Ambien) 5 mg HS PRN PO INSOMNIA 11/16/16 01:15 11/16/16 23:01 Metoprolol Tartrate (Lopressor) 25 mg Q12HR PO 11/16/16 01:30 11/17/16 10:36 Ketorolac Tromethamine (Toradol Inj) 30 mg Q6H PRN IM PAIN SCALE 1 TO 5 11/16/16 08:30 11/16/16 08:34 Tamsulosin HCl (Flomax) 0.4 mg DAILY PO 11/16/16 15:00 11/17/16 10:30 Vital Signs / I&O Vital Signs Date Time Temp Pulse Resp B/P Pulse Ox O2 Delivery O2 Flow Rate FiO2 11/17/16 08:00 97.1 68 18 131/82 92 11/17/16 02:50 96.9 61 16 109/57 95 11/17/16 02:34 95 Nasal Cannula 2.00 11/16/16 22:00 56 11/16/16 20:44 95 Nasal Cannula 2.00 11/16/16 20:00 58 11/16/16 20:00 98.1 58 22 119/74 94 11/16/16 19:00 95 Nasal Cannula 4.00 11/16/16 18:00 51 11/16/16 16:00 98.3 54 19 131/61 97 11/16/16 16:00 54 11/16/16 14:00 57 11/16/16 12:00 98.3 66 19 147/71 99 11/16/16 12:00 66 I/O 11/16/16 11/16/16 11/16/16 11/17/16 11/17/16 11/17/16 07:00 15:00 23:00 07:00 15:00 23:00 Intake Total 1960 ml 1054 ml 1085 ml 310 ml Output Total 600 ml 200 ml 175 ml 275 ml Balance 1360 ml 854 ml 910 ml 35 ml Intake Oral 60 ml 120 ml 250 ml 0 ml IV Total 1900 ml 934 ml 835 ml 310 ml Output Urine Total 600 ml 200 ml 175 ml 275 ml # Bowel Movements 0 0 1 0 Physical Exam GENERAL: This is a well-nourished, well-developed patient, in no apparent distress. CARDIOVASCULAR: Regular rate and rhythm without murmurs, gallops, or rubs. RESPIRATORY: Clear to auscultation. Breath sounds equal bilaterally. No wheezes , rales, or rhonchi. GASTROINTESTINAL: Abdomen soft, non-tender, nondistended. Normal active bowel sounds MUSCULOSKELETAL: Extremities without clubbing, cyanosis, or edema. NEURO: Alert & Oriented x4 to person, place, time, situation. Moves all ext x4 Laboratory Laboratory Tests Test 11/17/16 05:11 White Blood Count 8.9 TH/MM3 Red Blood Count 3.70 MIL/MM3 Hemoglobin 11.3 GM/DL Hematocrit 35.0 % Mean Corpuscular Volume 94.8 FL Mean Corpuscular Hemoglobin 30.7 PG Mean Corpuscular Hemoglobin 32.4 % Concent Red Cell Distribution Width 13.1 % Platelet Count 173 TH/MM3 Mean Platelet Volume 8.4 FL Neutrophils (%) (Auto) 66.9 % Lymphocytes (%) (Auto) 18.7 % Monocytes (%) (Auto) 12.8 % Eosinophils (%) (Auto) 1.3 % Basophils (%) (Auto) 0.3 % Neutrophils # (Auto) 6.0 TH/MM3 Lymphocytes # (Auto) 1.7 TH/MM3 Monocytes # (Auto) 1.1 TH/MM3 Eosinophils # (Auto) 0.1 TH/MM3 Basophils # (Auto) 0.0 TH/MM3 CBC Comment DIFF FINAL Differential Comment Sodium Level 146 MEQ/L Potassium Level 4.3 MEQ/L Chloride Level 114 MEQ/L Carbon Dioxide Level 23.1 MEQ/L Anion Gap 9 MEQ/L Blood Urea Nitrogen 23 MG/DL Creatinine 1.51 MG/DL Estimat Glomerular Filtration 35 ML/MIN Rate Random Glucose 90 MG/DL Calcium Level 7.7 MG/DL Phosphorus Level 3.1 MG/DL Magnesium Level 1.8 MG/DL Total Bilirubin 0.2 MG/DL Aspartate Amino Transf 59 U/L (AST/SGOT) Alanine Aminotransferase 84 U/L (ALT/SGPT) Alkaline Phosphatase 61 U/L Total Protein 5.5 GM/DL Albumin 2.6 GM/DL Imaging Last Impressions Abdomen X-Ray 11/17/16 0600 Signed Impressions: Service Date/Time: Thursday, November 17, 2016 08:06 - CONCLUSION: 1. No renal stones are identified. Ajay Swenson MD Head CT 11/15/162234 Signed Impressions: Service Date/Time: Tuesday, November 15, 2016 22:35 - CONCLUSION: Negative for acute process. Rico Muñoz MD FACR Chest X-Ray 11/15/[id number] Signed Impressions: Service Date/Time: Tuesday, November 15, 2016 22:19 - CONCLUSION: No acute disease. Rico Muñoz MD FACR Abdomen/Pelvis CT 11/15/162111 Signed Impressions: Service Date/Time: Tuesday, November 15, 2016 21:25 - CONCLUSION: 4 mm partially obstructing stone distal third of the ureter just above the UVJ. Rico Muñoz MD FACR Assessment and Plan Problem List: (1) Cardiac arrest Assessment and Plan: very unclear what happened, testing thus far unremarkable , normal LVEF, nuc stress results pending but do not expect them to be positive. Will plan for a loop recorder (syncope) tomorrow, pt agrees with this plan. (2) Successful cardiopulmonary resuscitation Ovidio Gomez MD Nov 17, 2016 10:53
[2016-11-17 12:00] VITALS: BP 152/85; PULSE 67; RESP 18; TEMP 97.7; O2SAT 98
--- NOTE | 2016-11-17 13:30 | HHI.PR ---
Subjective Remarks PT c/o blood tinged urine. No chest pain. No SOB Objective Vitals Vital Signs Date Time Temp Pulse Resp B/P Pulse Ox O2 Delivery O2 Flow Rate FiO2 11/17/16 10:15 95 Nasal Cannula 4.00 11/17/16 08:00 97.1 68 18 131/82 92 11/17/16 02:50 96.9 61 16 109/57 95 11/17/16 02:34 95 Nasal Cannula 2.00 11/16/16 22:00 56 11/16/16 20:44 95 Nasal Cannula 2.00 11/16/16 20:00 58 11/16/16 20:00 98.1 58 22 119/74 94 11/16/16 19:00 95 Nasal Cannula 4.00 11/16/16 18:00 51 11/16/16 16:00 98.3 54 19 131/61 97 11/16/16 16:00 54 11/16/16 14:00 57 11/16/16 11/16/16 11/17/16 15:00 23:00 07:00 Intake Total 1054 ml 1085 ml 310 ml Output Total 200 ml 175 ml 275 ml Balance 854 ml 910 ml 35 ml Intake Oral 120 ml 250 ml 0 ml IV Total 934 ml 835 ml 310 ml Output Urine Total 200 ml 175 ml 275 ml # Bowel Movements 0 1 0 Result Diagram: 11/17/16 0511 11/17/16 0511 Imaging Last Impressions Abdomen X-Ray 11/17/16 0600 Signed Impressions: Service Date/Time: Thursday, November 17, 2016 08:06 - CONCLUSION: 1. No renal stones are identified. Ajay Swenson MD Myocardial Perfusion Scan Nuc Med 11/17/16 0000 Signed Impressions: Service Date/Time: Thursday, November 17, 2016 08:31 - CONCLUSION: Negative for stress-induced ischemia.. RISK CATEGORY: Low (<1%% Annual Mortality Rate) Rico Muñoz MD FACR Head CT 11/15/166 Signed Impressions: Service Date/Time: Tuesday, November 15, 2016 22:35 - CONCLUSION: Negative for acute process. Rico Muñoz MD FACR Chest X-Ray 11/15/167 Signed Impressions: Service Date/Time: Tuesday, November 15, 2016 22:19 - CONCLUSION: No acute disease. Rico Muñoz MD FACR Abdomen/Pelvis CT 11/15/162111 Signed Impressions: Service Date/Time: Tuesday, November 15, 2016 21:25 - CONCLUSION: 4 mm partially obstructing stone distal third of the ureter just above the UVJ. Rico Muñoz MD FACR Objective Remarks GENERAL: This is a well-nourished, well-developed patient, in no apparent distress. CARDIOVASCULAR: Regular rate and rhythm without murmurs, gallops, or rubs. RESPIRATORY: Clear to auscultation. Breath sounds equal bilaterally. No wheezes , rales, or rhonchi. GASTROINTESTINAL: Abdomen soft, non-tender, nondistended. Normal active bowel sounds MUSCULOSKELETAL: Extremities without clubbing, cyanosis, or edema. NEURO: Alert & Oriented x4 to person, place, time, situation. Moves all ext x4 A/P Problem List: (1) Cardiac arrest Status: Acute Plan: - comgmt with Cardiology - pt developed PEA and had successful resuscitation - negative lexiscan (11/17/16) - pt to have loop recorder placed 11/18/16 (2) Kidney stone on left side Status: Acute Plan: - comgmt with Urology - CT abd/pelvis (11/15/16) 4 mm partially obstructing stone distal third of the ureter just above the UVJ. - nephrolithiasis will likely pass spontaneously - flomax - encourage PO intake - continue IVFs - blood tinged urine likely d/t nephrolithiasis, observe - norco prn (3) HTN (hypertension) Status: Acute Plan: - continue metoprolol and diovan Problem Qualifiers (1) HTN (hypertension): Qualified Code: I10 - Essential hypertension David Noguera DO Nov 17, 2016 13:30
--- NOTE | 2016-11-17 14:32 | HHI.PR ---
Subjective Remarks Denies flank pain Denies passing a stone via Douglas Objective Vital Signs Vital Signs Date Time Temp Pulse Resp B/P Pulse Ox O2 Delivery O2 Flow Rate FiO2 11/17/16 10:15 95 Nasal Cannula 4.00 11/17/16 08:00 97.1 68 18 131/82 92 11/17/16 02:50 96.9 61 16 109/57 95 11/17/16 02:34 95 Nasal Cannula 2.00 11/16/16 22:00 56 11/16/16 20:44 95 Nasal Cannula 2.00 11/16/16 20:00 58 11/16/16 20:00 98.1 58 22 119/74 94 11/16/16 19:00 95 Nasal Cannula 4.00 11/16/16 18:00 51 11/16/16 16:00 98.3 54 19 131/61 97 11/16/16 16:00 54 I/O 11/16/16 11/16/16 11/16/16 11/17/16 11/17/16 11/17/16 07:00 15:00 23:00 07:00 15:00 23:00 Intake Total 1960 ml 1054 ml 1085 ml 310 ml Output Total 600 ml 200 ml 175 ml 275 ml Balance 1360 ml 854 ml 910 ml 35 ml Intake Oral 60 ml 120 ml 250 ml 0 ml IV Total 1900 ml 934 ml 835 ml 310 ml Output Urine Total 600 ml 200 ml 175 ml 275 ml # Bowel Movements 0 0 1 0 Result Diagram: 11/17/16 0511 11/17/16 0511 Imaging KUB study from this morning did not demonstrate any renal or ureteral calculi Assessment and Plan Assessment and Plan Urologic impression: #1 4 mm obstructing left distal ureteral calculus which may have already passed into the urinary bladder #2 nonobstructing small left renal calculus #3 hematuria related to recent stone passage Recommendations: #1 continue with analgesic support prn #2 continue to strain all urine #3 Flomax 0.4 mg by mouth daily #4 renal ultrasound tomorrow morning Hernandez Carpio MD Nov 17, 2016 14:32
[2016-11-17 16:00] VITALS: BP 119/62; PULSE 80; RESP 18; TEMP 99.3; O2SAT 94
--- NOTE | 2016-11-17 19:50 | EKG ---
Date Performed: 11/15/2016 Time Performed: 22:12:14 PTAGE: 66 years EKG: Sinus arrhythmia. rSr'(V1) - probable normal variant Ant/septal and lateral ST-T changes ar e nonspecific Borderline ECG PREVIOUS TRACING : 10/15/2012 02.27 DOCTOR: Maverick Marcum Interpretating Date/Time 11/17/2016 19:41:43
[2016-11-17 20:40] VITALS: BP 135/73; PULSE 73; RESP 17; TEMP 98.4; O2SAT 95
[2016-11-17] MEDS: ZOLPIDEM TARTRATE 5 MG TAB PO PRN (23:20)
[2016-11-17] MEDS: ACETAMINOPHEN 325 MG TAB PO PRN (23:20)
[2016-11-18] VITALS (7 sets, daily range): BP systolic 118–146; BP diastolic 65–84; PULSE 62–78; RESP 16–17; TEMP 96.4–98.3; O2SAT 92–97
[2016-11-18] MEDS: SODIUM CHLOR 0.9% 1000 ML INJ 1,000 ML IV SCH ×2 (01:26→11:26)
[2016-11-18] MEDS: HEPARIN SODIUM - SQ 10,000 UNITS/ML VIAL SQ SCH ×3 (03:48→22:35)
[2016-11-18] MEDS: CHLORHEXIDINE GLUCONATE 2 % 1 PACK (2 CLOTHS) TOP SCH (04:00)
[2016-11-18] MEDS: FLUoxetine HCL 20 MG CAP PO SCH (08:07)
[2016-11-18] MEDS: METOPROLOL TARTRATE 25 MG TAB PO SCH ×2 (08:07→20:21)
[2016-11-18] MEDS: TAMSULOSIN HCL 0.4 MG CAP PO SCH (08:07)
[2016-11-18] MEDS: PANTOPRAZOLE SOD 40 MG DELAYED RELEASE TAB PO SCH (08:07)
[2016-11-18] MEDS: VALSARTAN 80 MG TAB PO SCH (08:07)
[2016-11-18] MEDS: SODIUM CHLORIDE 0.9% FLUSH 5 ML FLUSH IV FLUSH SCH ×2 (08:08→20:22)
[2016-11-18] MEDS ORDERED: MIDAZOLAM HCL 5 MG/5 ML VIAL ONE (08:14)
[2016-11-18] MEDS ORDERED: MUPIROCIN 2% OINT 1 APPLIC/GM SYR NASAL SCH (08:15)
[2016-11-18] MEDS ORDERED: POVIDONE IODINE 5% (ANTISEPSIS KIT) 4 APPLICATIONS EACH NARE SCH (08:15)
[2016-11-18] MEDS ORDERED: CHLORHEXIDINE GLUCONATE 2 % 1 PACK (2 CLOTHS) TOP SCH (08:15)
[2016-11-18] MEDS ORDERED: VANCOMYCIN 1000 MG/NS 250 ML IV SCH ×2 (08:15)
[2016-11-18] MEDS ORDERED: ceFAZolin 2 GM PREMIX 50 ML IV SCH (08:15)
[2016-11-18] MEDS ORDERED: SODIUM CHLORID 0.9% 500 ML IV SCH (08:30)
[2016-11-18] MEDS ORDERED: LACTATED RINGER'S 1000 ML IV SCH (08:30)
[2016-11-18] MEDS ORDERED: LIDOCAINE HCL 1% 50 ML VIAL ONE (08:51)
--- NOTE | 2016-11-18 09:01 | PD.CARD.PN ---
Subjective Subjective Remarks asymptomatic, tolerated loop recorder well. Objective Medications Administered Medications Medications (Trade) Dose Ordered Sig/Yunior Route PRN Reason Start Time Stop Time Status Last Admin Dose Admin Sodium Chloride (NS 1000 ml Inj) 1,000 ml @ 100 mls/hr Q10H IV 11/15/16 23:26 11/17/16 02:13 IV Flush (NS Flush) 2 ml BID IV FLUSH 11/16/16 09:00 11/18/16 08:08 Acetaminophen (Tylenol) 650 mg Q6H PRN PO PAIN 1-10 AND/OR FEVER >101F 11/15/16 23:30 11/17/16 23:20 Fentanyl Citrate (fentaNYL INJ) 50 mcg Q1H PRN IV PUSH Pain scale 6-10 &/or sedation 11/15/16 23:30 11/16/16 12:48 Pantoprazole Sodium (Protonix) 40 mg DAILY PO 11/16/16 09:00 11/18/16 08:07 Ondansetron HCl (Zofran Inj) 4 mg Q6H PRN IV NAUSEA OR VOMITING 11/15/16 23:30 11/16/16 12:47 Heparin Sodium (Porcine) (Heparin Inj) 5,000 units Q8HR SQ 11/16/16 06:00 11/17/16 21:02 Fluoxetine HCl (PROzac) 20 mg DAILY PO 11/16/16 09:00 11/18/16 08:07 Valsartan (Diovan) 80 mg DAILY PO 11/16/16 09:00 11/18/16 08:07 Zolpidem Tartrate (Ambien) 5 mg HS PRN PO INSOMNIA 11/16/16 01:15 11/17/16 23:20 Metoprolol Tartrate (Lopressor) 25 mg Q12HR PO 11/16/16 01:30 11/18/16 08:07 Ketorolac Tromethamine (Toradol Inj) 30 mg Q6H PRN IM PAIN SCALE 1 TO 5 11/16/16 08:30 11/16/16 08:34 Tamsulosin HCl (Flomax) 0.4 mg DAILY PO 11/16/16 15:00 11/18/16 08:07 Vital Signs / I&O Vital Signs Date Time Temp Pulse Resp B/P Pulse Ox O2 Delivery O2 Flow Rate FiO2 11/18/16 07:48 96.9 78 17 146/84 94 11/18/16 04:15 98.0 71 17 124/68 92 11/18/16 00:10 98.3 72 17 118/65 92 11/17/16 21:50 Nasal Cannula 2.00 11/17/16 20:40 98.4 73 17 135/73 95 11/17/16 16:00 99.3 80 18 119/62 94 11/17/16 12:00 97.7 67 18 152/85 98 11/17/16 10:15 95 Nasal Cannula 4.00 I/O 11/17/16 11/17/16 11/17/16 11/18/16 11/18/16 11/18/16 07:00 15:00 23:00 07:00 15:00 23:00 Intake Total 310 ml 2277 ml 961 ml Output Total 275 ml 1300 ml 500 ml Balance 35 ml 977 ml 461 ml Intake Oral 0 ml 840 ml 0 ml IV Total 310 ml 1437 ml 961 ml Output Urine Total 275 ml 1300 ml 500 ml # Bowel Movements 0 2 0 Physical Exam GENERAL: This is a well-nourished, well-developed patient, in no apparent distress. CARDIOVASCULAR: Regular rate and rhythm without murmurs, gallops, or rubs. RESPIRATORY: Clear to auscultation. Breath sounds equal bilaterally. No wheezes , rales, or rhonchi. GASTROINTESTINAL: Abdomen soft, non-tender, nondistended. Normal active bowel sounds MUSCULOSKELETAL: Extremities without clubbing, cyanosis, or edema. NEURO: Alert & Oriented x4 to person, place, time, situation. Moves all ext x4 Imaging Last Impressions Abdomen X-Ray 11/17/16 0600 Signed Impressions: Service Date/Time: Thursday, November 17, 2016 08:06 - CONCLUSION: 1. No renal stones are identified. Ajay Swenson MD Myocardial Perfusion Scan Nuc Med 11/17/16 0000 Signed Impressions: Service Date/Time: Thursday, November 17, 2016 08:31 - CONCLUSION: Negative for stress-induced ischemia.. RISK CATEGORY: Low (<1%% Annual Mortality Rate) Rico Muñoz MD FACR Head CT 11/15/16 2235 Signed Impressions: Service Date/Time: Tuesday, November 15, 2016 22:35 - CONCLUSION: Negative for acute process. Rico Muñoz MD FACR Chest X-Ray 11/15/162216 Signed Impressions: Service Date/Time: Tuesday, November 15, 2016 22:19 - CONCLUSION: No acute disease. Rico Muñoz MD FACR Abdomen/Pelvis CT 11/15/162111 Signed Impressions: Service Date/Time: Tuesday, November 15, 2016 21:25 - CONCLUSION: 4 mm partially obstructing stone distal third of the ureter just above the UVJ. Rico Muñoz MD FACR Assessment and Plan Problem List: (1) Cardiac arrest Assessment and Plan: questionable; very unclear what happened, testing thus far unremarkable, normal LVEF, nuc stress non-ischemic; Loop recorder now in place. (2) Successful cardiopulmonary resuscitation Assessment and Plan Ok to d/c home from cardiac standpoint, will see in my office in 1-2 weeks. Ovidio Gomez MD Nov 18, 2016 09:01
--- NOTE | 2016-11-18 12:27 | MA ---
cc: OVIDIO GOMEZ MD DATE November 18, 2016 PROCEDURE PERFORMED Loop recorder insertion. PREPROCEDURE DIAGNOSIS Syncope. POSTOPERATIVE DIAGNOSIS Successful loop recorder insertion. DESCRIPTION OF PROCEDURE The patient was brought to the DOC Unit in the postabsorptive state after informed consent was obtained and [employer] LIN[employer] loop recorder was inserted subcutaneously to the left chest. The patient tolerated the procedure well without any apparent complication. FINDINGS Initial R-wave was 0.28 mV. Tachybrady pause and atrial fibrillation was enabled. Serial Number [id number]. Ovidio Gomez MD ADELITA/SSB /9:01 AM /12:24 PM
[2016-11-18] MEDS: SODIUM CHLORIDE 0.9% FLUSH 5 ML FLUSH IV FLUSH PRN (14:47)
[2016-11-18] MEDS: KETOROLAC TROMETHAMINE 30 MG/ML (IVP) VIAL IM PRN (14:47)
--- NOTE | 2016-11-18 15:09 | HHI.PR ---
Subjective Remarks No new complaints. Objective Vitals Vital Signs Date Time Temp Pulse Resp B/P Pulse Ox O2 Delivery O2 Flow Rate FiO2 11/18/16 11:40 97.4 62 17 123/72 95 11/18/16 07:48 96.9 78 17 146/84 94 11/18/16 04:15 98.0 71 17 124/68 92 11/18/16 00:10 98.3 72 17 118/65 92 11/17/16 21:50 Nasal Cannula 2.00 11/17/16 20:40 98.4 73 17 135/73 95 11/17/16 16:00 99.3 80 18 119/62 94 11/17/16 11/17/16 11/18/16 15:00 23:00 07:00 Intake Total 2277 ml 961 ml Output Total 1300 ml 500 ml Balance 977 ml 461 ml Intake Oral 840 ml 0 ml IV Total 1437 ml 961 ml Output Urine Total 1300 ml 500 ml # Bowel Movements 2 0 Result Diagram: 11/17/16 0511 11/17/16 0511 Imaging Last Impressions Abdomen X-Ray 11/17/16 0600 Signed Impressions: Service Date/Time: Thursday, November 17, 2016 08:06 - CONCLUSION: 1. No renal stones are identified. Ajay Swenson MD Myocardial Perfusion Scan Nuc Med 11/17/16 0000 Signed Impressions: Service Date/Time: Thursday, November 17, 2016 08:31 - CONCLUSION: Negative for stress-induced ischemia.. RISK CATEGORY: Low (<1%% Annual Mortality Rate) Rico Muñoz MD FACR Head CT 11/15/165 Signed Impressions: Service Date/Time: Tuesday, November 15, 2016 22:35 - CONCLUSION: Negative for acute process. Rico Muñoz MD FACR Chest X-Ray 11/15/167 Signed Impressions: Service Date/Time: Tuesday, November 15, 2016 22:19 - CONCLUSION: No acute disease. Rico Muñoz MD FACR Abdomen/Pelvis CT 11/15/162 Signed Impressions: Service Date/Time: Tuesday, November 15, 2016 21:25 - CONCLUSION: 4 mm partially obstructing stone distal third of the ureter just above the UVJ. Rico Muñoz MD FACR Objective Remarks GENERAL: This is a well-nourished, well-developed patient, in no apparent distress. CARDIOVASCULAR: Regular rate and rhythm without murmurs, gallops, or rubs. RESPIRATORY: Clear to auscultation. Breath sounds equal bilaterally. No wheezes , rales, or rhonchi. GASTROINTESTINAL: Abdomen soft, non-tender, nondistended. Normal active bowel sounds MUSCULOSKELETAL: Extremities without clubbing, cyanosis, or edema. NEURO: Alert & Oriented x4 to person, place, time, situation. Moves all ext x4 A/P Problem List: (1) Cardiac arrest Status: Acute Plan: - comgmt with Cardiology - pt developed PEA and had successful resuscitation - negative lexiscan (11/17/16) - Pt had loop recorder placed by Dr. Gonzalez (11/18/16) - pt c/o b/l rib pain, possible d/t resuscitation efforts - obtain b/l rib series to r/o rib fractures - trial of ibuprofen 400mg scheduled (2) Kidney stone on left side Status: Acute Plan: - comgmt with Urology - CT abd/pelvis (11/15/16) 4 mm partially obstructing stone distal third of the ureter just above the UVJ. - nephrolithiasis will likely pass spontaneously - flomax - encourage PO intake - continue IVFs - blood tinged urine likely d/t nephrolithiasis, observe - norco prn - renal US ordered --> pending (3) HTN (hypertension) Status: Acute Plan: - continue metoprolol and diovan Problem Qualifiers (1) HTN (hypertension): Qualified Code: I10 - Essential hypertension David Noguera DO Nov 18, 2016 15:09
--- NOTE | 2016-11-18 16:43 | RADRPT ---
EXAM DATE/TIME: 11/18/2016 15:32 [facility] COMPARISON: CT ABDOMEN & PELVIS W/O CONTRAST, November 15, 2016, 21:25. INDICATIONS : Hydronephrosis. MEDICAL HISTORY : Hypertension. Renal calculi. Abdominal pain. SURGICAL HISTORY : Tonsillectomy. Tubal ligation. Hysterectomy. Partial oophorectomy. Bilateral carotid artery surgery. ENCOUNTER: Initial ACUITY: 1 day PAIN SCORE: 0/10 LOCATION: Bilateral flank MEASUREMENTS: RIGHT KIDNEY: 10.2 x 4.3 x 4.7 cm LEFT KIDNEY: 10.5 x 4.4 x 3.8 cm FINDINGS: RIGHT KIDNEY: Renal cortex is normal in thickness and echotexture. No hydronephrosis, stone, or mass. LEFT KIDNEY: Renal cortex is normal in thickness and echotexture. No hydronephrosis, or mass. There is a 0.8 cm echogenic focus at the lower pole representing a stone. BLADDER: The bladder is not distended or seen. OTHER: There is a left pleural effusion. CONCLUSION: 1. No hydronephrosis is seen. 2. 0.8 cm nodule at the left renal stone. 3. The bladder is not seen or distended. 4. Left effusion. Pawan Rios MD on November 18, 2016 at 16:38 Board Certified Radiologist. This report was verified electronically.
--- NOTE | 2016-11-18 17:26 | RADRPT ---
EXAM DATE/TIME: 11/18/2016 17:12 [facility] COMPARISON: No previous studies available for comparison. INDICATIONS : Bilateral rib pain. MEDICAL HISTORY : Hypertension. Renal calculi. Myocardial infarction. PTSD, Depression, Anxiety SURGICAL HISTORY : Hysterectomy. Tubal ligation. Tonsillectomy. ENCOUNTER: Initial ACUITY: 1 day PAIN SCORE: 5/10 LOCATION: Bilateral chest FINDINGS: Multiple views of both ribs were performed. There is no evidence of displaced fracture. No destruct amy lesions or areas of periosteal thickening are seen. Expiratory view of the chest is negative for pneumothorax. Small bilateral pleural effusions are pres ent, however. Heart size is normal. A loop recorder projects over the left upper abdominal quadrant CONCLUSION: 1. Small bilateral pleural effusions, left greater than right with concomitant atelectatic changes in the bases. 2. No fracture or pneumothorax. Waldo Gaines MD on November 18, 2016 at 17:22 Board Certified Radiologist. This report was verified electronically.
[2016-11-18] MEDS: IBUPROFEN 400 MG TAB PO SCH ×2 (18:23→22:34)
[2016-11-18] MEDS: 1/2 NS + KCL 20 MEQ INJ 1,000 ML IV SCH (18:24)
[2016-11-18] MEDS ORDERED: BACITRACIN OINT 0.9 GM PKT TOP ONE (20:00)
[2016-11-18] MEDS: ZOLPIDEM TARTRATE 5 MG TAB PO PRN (22:36)
[2016-11-18] MEDS ORDERED: INSULIN HUMAN REGULAR 1,000 UNITS/10 ML VIAL SQ PRN (23:15)
[2016-11-19] VITALS (8 sets, daily range): BP systolic 112–171; BP diastolic 67–92; PULSE 67–75; RESP 16–20; TEMP 96–97.6; O2SAT 93–97
[2016-11-19] MEDS: 1/2 NS + KCL 20 MEQ INJ 1,000 ML IV SCH (02:00)
[2016-11-19] MEDS: CHLORHEXIDINE GLUCONATE 2 % 1 PACK (2 CLOTHS) TOP SCH (04:00)
[2016-11-19] MEDS: IBUPROFEN 400 MG TAB PO SCH ×4 (04:48→22:52)
[2016-11-19] MEDS: HEPARIN SODIUM - SQ 10,000 UNITS/ML VIAL SQ SCH ×3 (04:48→21:52)
[2016-11-19 07:00] LABS: AUTOMATED NEUTROPHIL # 5.2 TH/MM3 (1.8-7.7); BASOPHIL % 0.5 % (0.0-2.0); EOSINOPHIL # 0.2 TH/MM3 (0-0.4); EOSINOPHIL % 2.6 % (0.0-4.0); HEMATOCRIT 32.2 % (35.0-46.0); HEMO FLAGS DIFF FINAL; LYMPH % 14.6 % (9.0-44.0); LYMPHOCYTE # 1.1 TH/MM3 (1.0-4.8); MEAN CELL VOLUME 94.7 FL (80.0-100.0); MEAN CORPUSCULAR HEMOGLOBIN 31.2 PG (27.0-34.0); MONO % 12.3 % (0.0-8.0); PLATELET COUNT 179 TH/MM3 (150-450); RED CELL DISTRIBUTION WIDTH 12.7 % (11.6-17.2); WHITE BLOOD COUNT 7.4 TH/MM3 (4.0-11.0)
[2016-11-19 07:12] LABS: BICARBONATE 27.7 MEQ/L (21.0-32.0); MAGNESIUM 1.8 MG/DL (1.5-2.5); POTASSIUM 4.4 MEQ/L (3.5-5.1)
[2016-11-19] MEDS: TAMSULOSIN HCL 0.4 MG CAP PO SCH (08:44)
[2016-11-19] MEDS: METOPROLOL TARTRATE 25 MG TAB PO SCH ×2 (08:45→21:52)
[2016-11-19] MEDS: FLUoxetine HCL 20 MG CAP PO SCH (08:45)
[2016-11-19] MEDS: VALSARTAN 80 MG TAB PO SCH (08:46)
[2016-11-19] MEDS: PANTOPRAZOLE SOD 40 MG DELAYED RELEASE TAB PO SCH (08:46)
[2016-11-19] MEDS: SODIUM CHLORIDE 0.9% FLUSH 5 ML FLUSH IV FLUSH SCH ×2 (09:00→22:53)
--- NOTE | 2016-11-19 16:00 | HHI.PR ---
Subjective Remarks Pt reports that her rib pain is improving. Pt still requiring supplemental O2, currently on 1L Douglas cath removed today, urinating without difficulty Objective Vitals Vital Signs Date Time Temp Pulse Resp B/P Pulse Ox O2 Delivery O2 Flow Rate FiO2 11/19/16 13:22 18 11/19/16 11:53 97.2 67 17 125/78 96 11/19/16 10:00 92 Nasal Cannula 1.00 11/19/16 08:00 96.9 75 16 138/92 93 11/19/16 04:00 96.9 73 16 154/91 93 11/19/16 00:00 96.4 74 16 121/71 93 11/18/16 23:00 Room Air 11/18/16 20:00 96.4 69 16 137/75 94 11/18/16 11/18/16 11/19/16 15:00 23:00 07:00 Intake Total 240 ml 240 ml 729 ml Output Total 450 ml Balance -210 ml 240 ml 729 ml Intake Oral 240 ml 240 ml 240 ml IV Total 489 ml Output Urine Total 450 ml # Voids 2 1 # Bowel Movements 0 0 0 Result Diagram: 11/19/16 0558 11/19/16 0558 Other Results Laboratory Tests Test 11/19/16 05:58 White Blood Count 7.4 TH/MM3 Red Blood Count 3.40 MIL/MM3 Hemoglobin 10.6 GM/DL Hematocrit 32.2 % Mean Corpuscular Volume 94.7 FL Mean Corpuscular Hemoglobin 31.2 PG Mean Corpuscular Hemoglobin 33.0 % Concent Red Cell Distribution Width 12.7 % Platelet Count 179 TH/MM3 Mean Platelet Volume 8.3 FL Neutrophils (%) (Auto) 70.0 % Lymphocytes (%) (Auto) 14.6 % Monocytes (%) (Auto) 12.3 % Eosinophils (%) (Auto) 2.6 % Basophils (%) (Auto) 0.5 % Neutrophils # (Auto) 5.2 TH/MM3 Lymphocytes # (Auto) 1.1 TH/MM3 Monocytes # (Auto) 0.9 TH/MM3 Eosinophils # (Auto) 0.2 TH/MM3 Basophils # (Auto) 0.0 TH/MM3 CBC Comment DIFF FINAL Differential Comment Sodium Level 143 MEQ/L Potassium Level 4.4 MEQ/L Chloride Level 109 MEQ/L Carbon Dioxide Level 27.7 MEQ/L Anion Gap 6 MEQ/L Blood Urea Nitrogen 11 MG/DL Creatinine 0.97 MG/DL Estimat Glomerular Filtration 58 ML/MIN Rate Random Glucose 94 MG/DL Calcium Level 8.2 MG/DL Magnesium Level 1.8 MG/DL Imaging Last Impressions Renal Ultrasound 11/18/16 0600 Signed Impressions: Service Date/Time: Friday, November 18, 2016 15:32 - CONCLUSION: 1. No hydronephrosis is seen. 2. 0.8 cm nodule at the left renal stone. 3. The bladder is not seen or distended. 4. Left effusion. Pawan Rios MD Ribs X-Ray 11/18/16 0000 Signed Impressions: Service Date/Time: Friday, November 18, 2016 17:12 - CONCLUSION: 1. Small bilateral pleural effusions, left greater than right with concomitant atelectatic changes in the bases. 2. No fracture or pneumothorax. Waldo Gaines MD Abdomen X-Ray 11/17/16 0600 Signed Impressions: Service Date/Time: Thursday, November 17, 2016 08:06 - CONCLUSION: 1. No renal stones are identified. Ajay Swenson MD Myocardial Perfusion Scan Nuc Med 11/17/16 0000 Signed Impressions: Service Date/Time: Thursday, November 17, 2016 08:31 - CONCLUSION: Negative for stress-induced ischemia.. RISK CATEGORY: Low (<1%% Annual Mortality Rate) Rico Muñoz MD FACR Head CT 11/15/165 Signed Impressions: Service Date/Time: Tuesday, November 15, 2016 22:35 - CONCLUSION: Negative for acute process. Rico Muñoz MD FACR Chest X-Ray 11/15/167 Signed Impressions: Service Date/Time: Tuesday, November 15, 2016 22:19 - CONCLUSION: No acute disease. Rico Muñoz MD FACR Abdomen/Pelvis CT 11/15/162 Signed Impressions: Service Date/Time: Tuesday, November 15, 2016 21:25 - CONCLUSION: 4 mm partially obstructing stone distal third of the ureter just above the UVJ. Rico Muñoz MD FACR Objective Remarks General: NAD, AAOx3 Chest: Decreased breath sounds at the bases Cardiac: Regular Abd: +BS, soft ND/NT Ext: No edema A/P Problem List: (1) Cardiac arrest Status: Acute Plan: - comgmt with Cardiology - pt developed PEA and had successful resuscitation - negative Lexiscan (11/17/16) - Pt had loop recorder placed by Dr. Gonzalez (11/18/16) - pt c/o b/l rib pain, possible d/t resuscitation efforts, improved with ibuprofen - Rib series (11/18) --> Small bilateral pleural effusions, left greater than right with concomitant atelectatic changes in the bases. No fracture or pneumothorax - Pt still requiring supplemental O2. - Stop IVF - Give Lasix 40mg IV x one dose - CXR in AM - IS - DVT prophylaxis (2) Kidney stone on left side Status: Acute Plan: - comgmt with Urology - CT abd/pelvis (11/15/16) --> 4mm partially obstructing stone distal third of the ureter just above the UVJ. - nephrolithiasis will likely pass spontaneously - Renal US (11/18) --> No hydronephrosis is seen. 0.8 cm nodule at the left renal stone. The bladder is not seen or distended. Left effusion. - Flomax - encourage PO intake - continue IVFs - Blood tinged urine likely d/t nephrolithiasis, observe - [place] prn (3) HTN (hypertension) Status: Acute Plan: - continue metoprolol and diovan Assessment and Plan Patient examined. Assessment and plan formulated with Rosa Isela Ruffin PA-C. I agree with the above. Problem Qualifiers (1) HTN (hypertension): Qualified Code: I10 - Essential hypertension Rosa Isela Ruffin Nov 19, 2016 15:59 David Noguera DO Nov 27, 2016 23:15
[2016-11-19] MEDS ORDERED: FUROSEMIDE 40 MG/4 ML VIAL IV PUSH ONE (16:15)
[2016-11-19] MEDS ORDERED: ALPRAZolam 0.25 MG TAB PO PRN (16:30)
--- NOTE | 2016-11-19 17:00 | HHI.PR ---
Subjective Remarks Denies flank pain Reports hematuria almost completely resolved Objective Vital Signs Vital Signs Date Time Temp Pulse Resp B/P Pulse Ox O2 Delivery O2 Flow Rate FiO2 11/19/16 16:07 97.6 68 20 112/67 94 11/19/16 13:22 18 11/19/16 11:53 97.2 67 17 125/78 96 11/19/16 11:34 97 Nasal Cannula 1.00 11/19/16 10:00 92 Nasal Cannula 1.00 11/19/16 08:00 96.9 75 16 138/92 93 11/19/16 04:00 96.9 73 16 154/91 93 11/19/16 00:00 96.4 74 16 121/71 93 11/18/16 23:00 Room Air 11/18/16 20:00 96.4 69 16 137/75 94 I/O 11/18/16 11/18/16 11/18/16 11/19/16 11/19/16 11/19/16 07:00 15:00 23:00 07:00 15:00 23:00 Intake Total 961 ml 240 ml 240 ml 729 ml 400 ml Output Total 500 ml 450 ml Balance 461 ml -210 ml 240 ml 729 ml 400 ml Intake Oral 0 ml 240 ml 240 ml 240 ml 400 ml IV Total 961 ml 489 ml Output Urine Total 500 ml 450 ml # Voids 2 1 3 # Bowel Movements 0 0 0 0 1 Result Diagram: 11/19/16 0558 11/19/16 0558 Imaging Renal ultrasound study did not demonstrate any hydronephrosis. There was a small echogenic focus to the left kidney consistent with a nonobstructing renal calculus. Assessment and Plan Assessment and Plan Urologic impression: #1 4 mm obstructing left distal ureteral calculus which most likely has already passed #2 nonobstructing small left renal calculus #3 hematuria related to recent stone passage Recommendations: #1 no further urologic intervention necessary at the present time #2 patient will require outpatient surveillance of her small left renal calculi and will order a follow up KUB study in one year #3 DC Flomax #4 will be available as needed Hernandez Carpio MD Nov 19, 2016 17:00
[2016-11-19] MEDS: SODIUM CHLORIDE 0.9% FLUSH 5 ML FLUSH IV FLUSH PRN (17:03)
[2016-11-19] MEDS: ZOLPIDEM TARTRATE 5 MG TAB PO PRN (22:53)
[2016-11-20] VITALS (11 sets, daily range): BP systolic 106–156; BP diastolic 70–94; PULSE 63–74; RESP 16–18; TEMP 96.2–98.2; O2SAT 92–98
[2016-11-20] MEDS ORDERED: BACITRACIN TOP OINT 15 GM TUBE TOP PRN (01:45)
[2016-11-20] MEDS: CHLORHEXIDINE GLUCONATE 2 % 1 PACK (2 CLOTHS) TOP SCH (04:00)
[2016-11-20 04:55] LABS: AUTOMATED NEUTROPHIL # 5.4 TH/MM3 (1.8-7.7); BASOPHIL % 0.4 % (0.0-2.0); EOSINOPHIL # 0.2 TH/MM3 (0-0.4); EOSINOPHIL % 3.2 % (0.0-4.0); HEMATOCRIT 33.1 % (35.0-46.0); HEMO FLAGS DIFF FINAL; LYMPH % 16.3 % (9.0-44.0); LYMPHOCYTE # 1.3 TH/MM3 (1.0-4.8); MEAN CELL VOLUME 93.6 FL (80.0-100.0); MEAN CORPUSCULAR HEMOGLOBIN 31.1 PG (27.0-34.0); MEAN CORPUSCULAR HGB CONC 33.2 % (32.0-36.0); MONO % 10.6 % (0.0-8.0); NEUT % 69.5 % (16.0-70.0); PLATELET COUNT 209 TH/MM3 (150-450); RED BLOOD COUNT 3.53 MIL/MM3 (4.00-5.30); RED CELL DISTRIBUTION WIDTH 12.5 % (11.6-17.2); WHITE BLOOD COUNT 7.8 TH/MM3 (4.0-11.0)
[2016-11-20 05:35] LABS: BICARBONATE 32.8 MEQ/L (21.0-32.0); MAGNESIUM 1.8 MG/DL (1.5-2.5); POTASSIUM 3.8 MEQ/L (3.5-5.1)
[2016-11-20] MEDS: HEPARIN SODIUM - SQ 10,000 UNITS/ML VIAL SQ SCH ×3 (06:39→22:05)
[2016-11-20] MEDS: IBUPROFEN 400 MG TAB PO SCH ×3 (06:39→19:12)
[2016-11-20] MEDS: VALSARTAN 80 MG TAB PO SCH (09:34)
[2016-11-20] MEDS: METOPROLOL TARTRATE 25 MG TAB PO SCH ×2 (09:34→22:05)
[2016-11-20] MEDS: PANTOPRAZOLE SOD 40 MG DELAYED RELEASE TAB PO SCH (09:34)
[2016-11-20] MEDS: FLUoxetine HCL 20 MG CAP PO SCH (09:34)
[2016-11-20] MEDS: SODIUM CHLORIDE 0.9% FLUSH 5 ML FLUSH IV FLUSH SCH ×2 (09:35→22:05)
--- NOTE | 2016-11-20 10:22 | RADRPT ---
EXAM DATE/TIME: 11/20/2016 10:00 [facility] COMPARISON: RIBS BILAT(W PA CXR [id number]), November 18, 2016, 17:12. CHEST SINGLE AP, November 15, 2016, 22:19. [facility] PA & LAT, May 02, 2010, 19:40. INDICATIONS : Short of breath. MEDICAL HISTORY : Hypertension. Renal calculi. Abdominal pain. SURGICAL HISTORY : Tonsillectomy. Tubal ligation. Hysterectomy. Partial oophorectomy. Bilateral carotid artery surgery.a rtery surgery. Cardiac recorder. ENCOUNTER: Subsequent ACUITY: 4 - 6 days PAIN SCORE: 4/10 LOCATION: chest FINDINGS: PA and lateral views of the chest were obtained and again demonstrate small bilateral pleural effusio ns with blunting of the costophrenic angles. There are no confluent infiltrates. There is mild streak y opacity remaining at the lung bases. There is no pneumothorax. The heart size is at the upper limit s of normal with no perihilar edema. Mild scar. CONCLUSION: Small bilateral pleural effusions again noted which are not significantly changed from the rib series . There is scarring and mild streaky opacity remaining at the lung bases. Brodie Alexander MD on November 20, 2016 at 10:19 Board Certified Radiologist. This report was verified electronically.
[2016-11-20] MEDS ORDERED: METO25TA3 PO (15:55)
--- NOTE | 2016-11-20 16:03 | HHI.DS ---
Discharge Summary Admission Date Nov 15, 2016 at 23:01 Discharge Date: Nov 20, 2016 Admitting Diagnosis s/p cardiac arrest (1) Cardiac arrest Diagnosis: Secondary (2) Kidney stone on left side Diagnosis: Principal (3) HTN (hypertension) Diagnosis: Secondary Consultants Dr. Hernandez Carpio - Urology Dr. Ovidio Gomez - Cardiology Brief History Ms. Parker is a 66 y/o WM with HTN who presented to [facility] ED with flank pain. CT showed obstructing distal left ureteral stone. She sustained PEA arrest after returning from CT scan, and required 45 secs to restore perfusion rhythm. No signs of allergic reaction. Head CT normal, CXR clear after arrest. Trop, BNP normal. Noteworthy is that she participated in a 3 mile organized walk earlier in the day of admission in [place] and appeared dehydrated on arrival to ED. She states she was short of breath when she arrived to the ED well before her cardiac arrest. Pt was transferred to [facility] under the care of the Intensivists. CBC/BMP: 11/20/16 0326 11/20/16 0326 Significant Findings Laboratory Tests Test 11/19/16 11/20/16 05:58 03:26 Red Blood Count 3.40 MIL/MM3 3.53 MIL/MM3 (4.00-5.30) (4.00-5.30) Hemoglobin 10.6 GM/DL 11.0 GM/DL (11.6-15.3) (11.6-15.3) Hematocrit 32.2 % 33.1 % (35.0-46.0) (35.0-46.0) Monocytes (%) (Auto) 12.3 % 10.6 % (0.0-8.0) (0.0-8.0) Chloride Level 109 MEQ/L (98-107) Estimat Glomerular Filtration 58 ML/MIN (>89) 44 ML/MIN (>89) Rate Calcium Level 8.2 MG/DL (8.5-10.1) Carbon Dioxide Level 32.8 MEQ/L (21.0-32.0) Creatinine 1.24 MG/DL (0.50-1.00) Imaging Last Impressions Chest X-Ray 11/20/16 0800 Signed Impressions: Service Date/Time: November 10:00 - CONCLUSION: Small bilateral pleural effusions again noted which are not significantly changed from the rib series. There is scarring and mild streaky opacity remaining at the lung bases. Brodie Alexander MD Renal Ultrasound 11/18/16 0600 Signed Impressions: Service Date/Time: Friday, November 18, 2016 15:32 - CONCLUSION: 1. No hydronephrosis is seen. 2. 0.8 cm nodule at the left renal stone. 3. The bladder is not seen or distended. 4. Left effusion. Pawan Rios MD Ribs X-Ray 11/18/16 0000 Signed Impressions: Service Date/Time: Friday, November 18, 2016 17:12 - CONCLUSION: 1. Small bilateral pleural effusions, left greater than right with concomitant atelectatic changes in the bases. 2. No fracture or pneumothorax. Waldo Gaines MD Abdomen X-Ray 11/17/16 0600 Signed Impressions: Service Date/Time: Thursday, November 17, 2016 08:06 - CONCLUSION: 1. No renal stones are identified. Ajay Swenson MD Myocardial Perfusion Scan Nuc Med 11/17/16 0000 Signed Impressions: Service Date/Time: Thursday, November 17, 2016 08:31 - CONCLUSION: Negative for stress-induced ischemia.. RISK CATEGORY: Low (<1%% Annual Mortality Rate) Rico Muñoz MD FACR Head CT 11/15/165 Signed Impressions: Service Date/Time: Tuesday, November 15, 2016 22:35 - CONCLUSION: Negative for acute process. Rico Muñoz MD FACR Abdomen/Pelvis CT 11/15/16 2112 Signed Impressions: Service Date/Time: Tuesday, November 15, 2016 21:25 - CONCLUSION: 4 mm partially obstructing stone distal third of the ureter just above the UVJ. Rico Muñoz MD FACR PE at Discharge General: NAD, AAOx3 Chest: Decreased breath sounds at the bases Cardiac: Regular Abd: +BS, soft ND/NT Ext: No edema Hospital Course Cardiac arrest s/p resuscitation Pt presented to [facility] ED with flank pain. CT showed obstructing distal left ureteral stone. She sustained PEA arrest after returning from CT scan, and required 45 secs to restore perfusion rhythm. No signs of allergic reaction. Head CT was normal, CXR clear after arrest. Trop, BNP normal. Pt was transferred to [facility] under the care of the Intensivists. Cardiology was consulted. Pt had a negative Lexiscan (11/17/16). Pt had loop recorder placed by Dr. Ascencio (11/18/16). Pt had Metoprolol 25mg po BID in addition to her Valsartan 80mg daily. She had some complaints of b/l rib pain, possible d/t resuscitation efforts, which improved with ibuprofen. Rib series (11/18) --> Small bilateral pleural effusions, left greater than right with concomitant atelectatic changes in the bases. No fracture or pneumothorax. On 11/19 pt was still requiring supplemental O2. IVF were stopped and pt was given Lasix 40mg IV x one dose with improvement and pt able to be weaned off the O2 prior to discharge. CXR (11/20) with small bilateral pleural effusions again noted which are not significantly changed, some scarring and mild streaky opacity remaining at the lung bases. Pulmonary medicine saw the pt prior to discharge. Pt will need to followup with her PCP, Dr. Adam, in 1 week She can schedule an outpt evaluation with Pulmonary medicine Kidney stone on left side Pt had presented to the hospital with left flank pain. CT abd/pelvis (11/15/16) - -> 4mm partially obstructing stone distal third of the ureter just above the UVJ. Urology was consulted. It was felt that the nephrolithiasis will likely pass spontaneously. Pt was started on Flomax following admission until 11/19. Her hematuria resolved. Renal US (11/18) --> No hydronephrosis is seen. 0.8 cm nodule at the left renal stone, bladder is not seen or distended. Urology felt that no further urologic intervention was necessary at the present time and that the patient will require outpatient surveillance of her small left renal calculi and will order a follow up KUB study in one year. Pt can followup with Dr. Carpio in 1 month. Pt Condition on Discharge: Stable Discharge Disposition: Discharge Home Discharge Instructions DIET: Follow Instructions for: Heart Healthy Diet Activities you can perform: Regular-No Restrictions Follow up Referrals: Cardiology - 2 Weeks with Ovidio Gomez MD PCP Follow-up - [address] Gamaliel Adam Urology - 1 Month with Hernandez Carpio MD New Medications: Metoprolol Tartrate (Metoprolol Tartrate) 25 Mg Tab 25 MG PO Q12HR s/p cardiac arrest #62 TAB Continued Medications: Fluoxetine (Fluoxetine) 20 Mg Cap 20 MG PO DAILY #30 Ref 0 CAP Valsartan (Valsartan) 80 Mg Tab 80 MG PO DAILY #30 Ref 0 TAB Zolpidem (Zolpidem) 5 Mg Tab 5 MG PO HS PRN INSOMNIA Ref 0 TAB Rosa Isela Ruffin Nov 20, 2016 16:03 Rosa Isela Ruffin Nov 20, 2016 16:03
--- NOTE | 2016-11-20 16:04 | HHI.DCPOC ---
Discharge Care Plan Diagnosis: (1) Cardiac arrest (2) Successful cardiopulmonary resuscitation (3) HTN (hypertension) (4) Kidney stone on left side Goals to Promote Your Health * To prevent worsening of your condition and complications * To maintain your health at the optimal level Directions to Meet Your Goals Take your medications as prescribed Follow your dietary instruction Follow activity as directed Keep your appointments as scheduled Take your immunizations and boosters as scheduled If your symptoms worsen call your PCP, if no PCP go to Urgent Care Center or Emergency Room Smoking is Dangerous to Your Health. Avoid second hand smoke Call the 24-hour hour crisis hotline for domestic abuse at Rosa Isela Ruffin Nov 20, 2016 16:04
--- NOTE | 2016-11-20 16:18 | HHI.PR ---
Subjective Remarks Pt off supplemental O2 No further hematuria Awaiting pulmonary consultation. Objective Vitals Vital Signs Date Time Temp Pulse Resp B/P Pulse Ox O2 Delivery O2 Flow Rate FiO2 11/20/16 12:26 98.0 64 16 120/79 96 11/20/16 12:15 97 21 11/20/16 08:49 98 Nasal Cannula 1.00 11/20/16 08:08 98.2 63 18 129/81 95 11/20/16 08:06 98.2 63 18 129/81 95 11/20/16 04:00 97.1 74 16 106/83 92 11/20/16 00:18 96.2 71 16 150/94 96 11/19/16 21:09 95 Nasal Cannula 1.00 11/19/16 20:00 96.0 73 18 171/80 95 11/19/16 19:01 Room Air 11/19/16 11/19/16 11/20/16 15:00 23:00 07:00 Intake Total 400 ml 480 ml 240 ml Balance 400 ml 480 ml 240 ml Intake Oral 400 ml 480 ml 240 ml # Voids 3 4 3 # Bowel Movements 1 0 0 Result Diagram: 11/20/16 0326 11/20/16 0326 Other Results Laboratory Tests Test 11/19/16 11/20/16 05:58 03:26 White Blood Count 7.4 TH/MM3 7.8 TH/MM3 Red Blood Count 3.40 MIL/MM3 3.53 MIL/MM3 Hemoglobin 10.6 GM/DL 11.0 GM/DL Hematocrit 32.2 % 33.1 % Mean Corpuscular Volume 94.7 FL 93.6 FL Mean Corpuscular Hemoglobin 31.2 PG 31.1 PG Mean Corpuscular Hemoglobin 33.0 % 33.2 % Concent Red Cell Distribution Width 12.7 % 12.5 % Platelet Count 179 TH/MM3 209 TH/MM3 Mean Platelet Volume 8.3 FL 8.2 FL Neutrophils (%) (Auto) 70.0 % 69.5 % Lymphocytes (%) (Auto) 14.6 % 16.3 % Monocytes (%) (Auto) 12.3 % 10.6 % Eosinophils (%) (Auto) 2.6 % 3.2 % Basophils (%) (Auto) 0.5 % 0.4 % Neutrophils # (Auto) 5.2 TH/MM3 5.4 TH/MM3 Lymphocytes # (Auto) 1.1 TH/MM3 1.3 TH/MM3 Monocytes # (Auto) 0.9 TH/MM3 0.8 TH/MM3 Eosinophils # (Auto) 0.2 TH/MM3 0.2 TH/MM3 Basophils # (Auto) 0.0 TH/MM3 0.0 TH/MM3 CBC Comment DIFF FINAL DIFF FINAL Differential Comment Sodium Level 143 MEQ/L 141 MEQ/L Potassium Level 4.4 MEQ/L 3.8 MEQ/L Chloride Level 109 MEQ/L 100 MEQ/L Carbon Dioxide Level 27.7 MEQ/L 32.8 MEQ/L Anion Gap 6 MEQ/L 8 MEQ/L Blood Urea Nitrogen 11 MG/DL 13 MG/DL Creatinine 0.97 MG/DL 1.24 MG/DL Estimat Glomerular Filtration 58 ML/MIN 44 ML/MIN Rate Random Glucose 94 MG/DL 88 MG/DL Calcium Level 8.2 MG/DL 8.8 MG/DL Magnesium Level 1.8 MG/DL 1.8 MG/DL Imaging Last Impressions Renal Ultrasound 11/18/16 0600 Signed Impressions: Service Date/Time: Friday, November 18, 2016 15:32 - CONCLUSION: 1. No hydronephrosis is seen. 2. 0.8 cm nodule at the left renal stone. 3. The bladder is not seen or distended. 4. Left effusion. Pawan Rios MD Ribs X-Ray 11/18/16 0000 Signed Impressions: Service Date/Time: Friday, November 18, 2016 17:12 - CONCLUSION: 1. Small bilateral pleural effusions, left greater than right with concomitant atelectatic changes in the bases. 2. No fracture or pneumothorax. Waldo Gaines MD Abdomen X-Ray 11/17/16 0600 Signed Impressions: Service Date/Time: Thursday, November 17, 2016 08:06 - CONCLUSION: 1. No renal stones are identified. Ajay Swenson MD Myocardial Perfusion Scan Nuc Med 11/17/16 0000 Signed Impressions: Service Date/Time: Thursday, November 17, 2016 08:31 - CONCLUSION: Negative for stress-induced ischemia.. RISK CATEGORY: Low (<1%% Annual Mortality Rate) Rico Muñoz MD FACR Head CT 11/15/16 0865 Signed Impressions: Service Date/Time: Tuesday, November 15, 2016 22:35 - CONCLUSION: Negative for acute process. Rico Muñoz MD FACR Chest X-Ray 11/15/167 Signed Impressions: Service Date/Time: Tuesday, November 15, 2016 22:19 - CONCLUSION: No acute disease. Rico Muñoz MD FACR Abdomen/Pelvis CT 11/15/162 Signed Impressions: Service Date/Time: Tuesday, November 15, 2016 21:25 - CONCLUSION: 4 mm partially obstructing stone distal third of the ureter just above the UVJ. Rico Muñoz MD FACR Objective Remarks General: NAD, AAOx3 Chest: Decreased breath sounds at the bases Cardiac: Regular Abd: +BS, soft ND/NT Ext: No edema A/P Problem List: (1) Cardiac arrest Status: Acute Plan: - comgmt with Cardiology - pt developed PEA and had successful resuscitation - negative Lexiscan (11/17/16) - Pt had loop recorder placed by Dr. Gonzalez (11/18/16) - pt c/o b/l rib pain, possible d/t resuscitation efforts, improved with ibuprofen - Rib series (11/18) --> Small bilateral pleural effusions, left greater than right with concomitant atelectatic changes in the bases. No fracture or pneumothorax - Pt still requiring supplemental O2. - IVF stopped on 11/19 and pt was given Lasix 40mg IV x one dose - CXR similar appearance - Pt is off supplemental O2 - Pulmonary evaluating. - IS - DVT prophylaxis (2) Kidney stone on left side Status: Acute Plan: - comgmt with Urology - CT abd/pelvis (11/15/16) --> 4mm partially obstructing stone distal third of the ureter just above the UVJ. - nephrolithiasis will likely pass spontaneously - Renal US (11/18) --> No hydronephrosis is seen. 0.8 cm nodule at the left renal stone. The bladder is not seen or distended. Left effusion. - Off Flomax - encourage PO intake - Blood tinged urine likely d/t nephrolithiasis, observe - [place] prn (3) HTN (hypertension) Status: Acute Plan: - continue metoprolol and diovan Assessment and Plan Patient examined. Assessment and plan formulated with Rosa Isela Ruffin PA-C. I agree with the above. Problem Qualifiers (1) HTN (hypertension): Qualified Code: I10 - Essential hypertension Rosa Isela Ruffin Nov 20, 2016 16:17 David Noguera DO Nov 27, 2016 23:16
[2016-11-20 16:58] LABS: BLOOD GAS BASE EXCESS 4.9 mmol/L (-2-2); BLOOD GAS CARBOXYHEMOGLOBIN 1.5 % (0-4); BLOOD GAS HCO3 28 mmol/L (22-26); BLOOD GAS O2 HGB SATURATION 92 % (90-100); BLOOD GAS OXYGEN CONTENT 14.4 Vol % (12.0-20.0); BLOOD GAS PCO2 35 mmHg (38-42); BLOOD GAS PO2 68 mmHg (61-120); BLOOD GAS TOTAL HGB 11.1 G/DL (12.0-16.0); CRITICAL VALUE YES; DRAW SITE RT RADIAL; FIO2 21 %; NUMBER OF ARTERIAL PUNCTURES 2; STAT NO; TEMP CORR TO 98.6; ULNAR PULSE PRESENT
--- NOTE | 2016-11-20 17:35 | MB ---
cc: TETO IRENE M.D. DATE OF CONSULTATION: 11/20/2016 REASON FOR CONSULTATION: Post cardiac arrest hypoxemia. HISTORY OF PRESENT ILLNESS Mrs. Parker is a 66-year-old female was admitted with left flank pain and evidence of ureteral calculus. The patient had a CT scan, after which she had developed a cardiac arrest, was successfully resuscitated. Extubated, presently alert and in no respiratory distress. However, oxygen saturation was low, however, overall seems to be in an upward fashion. She has no fever or chills. No cough, no expectoration. No hemoptysis. No TB or industrial exposure. No history of COPD. PAST MEDICAL HISTORY: Her past medical history is that of anxiety, depression, hypertension, renal calculus as above, history of tubal ligation previous hysterectomy T&A as a child as well as an oophorectomy. SOCIAL HISTORY Does not smoke, does not drink. No TB or industrial exposure. FAMILY HISTORY Noncontributory. MEDICATIONS AT HOME Include 1. Valsartan 2. Fluoxetine 3. Ambien ALLERGIES None known to medication. REVIEW OF SYSTEMS 12-point review of systems as per HPI and past history otherwise negative. PHYSICAL EXAMINATION: VITAL SIGNS: On exam the patient is alert. Temperature 98, pulse 60, respirations 16, blood pressure 120/80. Oxygen saturation 96% room air. Was on oxygen at 4 liters nasal cannula earlier HEAD, EYES, EARS, NOSE, AND THROAT: Exam unremarkable. Eyes without icterus. NECK: Without adenopathy or thyroid enlargement. Central trachea. ABDOMEN: Lax bowel sounds, all central trachea. HEART: Cardiac exam PMI not appreciated. S1-S2 audible. No murmur or rub. ABDOMEN: Lax, audible bowel sounds. EXTREMITIES: No clubbing, cyanosis or edema. SKIN: Normal. No lymphadenopathy. LABORATORY DATA White count 7.8, hemoglobin 11, hematocrit 33, platelets at 209,000, sodium 141, potassium 3.8, BUN 13, creatinine 1.2. IMPRESSION 1. Post cardiac arrest hypoxemia, improving. 2. Renal hypertension controlled. 3. Renal calculus. 4. Mood disorder. 5. Status post loop recorder insertion. PLAN The patient seems to be improving. She has no significant pulmonary history and did not smoke. Her hypoxemia most likely is related to the acute cardiac event which she is now recovering we will check a baseline arterial blood gas as well as a pulmonary function. Further evaluation be undertaken if needed. I do thank you for asking to partake in Mrs. Parker's care. Sincerely Teto Irene MD WWW/ /4:20 PM /4:47 PM
[2016-11-20] MEDS: ZOLPIDEM TARTRATE 5 MG TAB PO PRN (22:05)
[2016-11-21 00:15] VITALS: BP 136/71; PULSE 73; RESP 18; TEMP 97; O2SAT 97
[2016-11-21] MEDS: IBUPROFEN 400 MG TAB PO SCH ×3 (01:08→14:02)
[2016-11-21 04:00] VITALS: BP 145/90; PULSE 78; RESP 18; TEMP 97.4; O2SAT 93
[2016-11-21] MEDS: CHLORHEXIDINE GLUCONATE 2 % 1 PACK (2 CLOTHS) TOP SCH (04:00)
[2016-11-21] MEDS: HEPARIN SODIUM - SQ 10,000 UNITS/ML VIAL SQ SCH (06:35)
[2016-11-21 08:00] VITALS: BP 135/72; PULSE 63; RESP 20; TEMP 97.4; O2SAT 99
[2016-11-21 08:42] VITALS: O2SAT 97
[2016-11-21] MEDS: VALSARTAN 80 MG TAB PO SCH (10:40)
[2016-11-21] MEDS: PANTOPRAZOLE SOD 40 MG DELAYED RELEASE TAB PO SCH (10:40)
[2016-11-21] MEDS: FLUoxetine HCL 20 MG CAP PO SCH (10:40)
[2016-11-21] MEDS: METOPROLOL TARTRATE 25 MG TAB PO SCH (10:41)
[2016-11-21] MEDS: SODIUM CHLORIDE 0.9% FLUSH 5 ML FLUSH IV FLUSH SCH (10:47)
[2016-11-21 12:00] VITALS: BP 123/73; PULSE 70; RESP 20; TEMP 96.5; O2SAT 90
[2016-11-21 16:00] VITALS: BP 146/87; PULSE 65; RESP 20; TEMP 97.3; O2SAT 94
[2016-11-21] MEDS ORDERED: SYMB160A INH (17:26)
--- NOTE | 2016-11-21 17:32 | HHI.DS ---
Discharge Summary Admission Date Nov 15, 2016 at 23:01 Discharge Date: Nov 21, 2016 Admitting Diagnosis s/p cardiac arrest (1) Cardiac arrest Diagnosis: Principal (2) Kidney stone on left side Diagnosis: Secondary (3) HTN (hypertension) Diagnosis: Secondary Consultants Dr. Hernandez Carpio - Urology Dr. Ovidio Gomez - Cardiology Dr. Jose Garcia - Pulmonary medicine Brief History Ms. Parker is a 66 y/o WM with HTN who presented to [facility] ED with flank pain. CT showed obstructing distal left ureteral stone. She sustained PEA arrest after returning from CT scan, and required 45 secs to restore perfusion rhythm. No signs of allergic reaction. Head CT normal, CXR clear after arrest. Trop, BNP normal. Noteworthy is that she participated in a 3 mile organized walk earlier in the day of admission in [place] and appeared dehydrated on arrival to ED. She states she was short of breath when she arrived to the ED well before her cardiac arrest. Pt was transferred to [facility] under the care of the Intensivists. CBC/BMP: 11/20/16 0326 11/20/16 0326 Significant Findings Laboratory Tests Test 11/19/16 11/20/16 11/20/16 05:58 03:26 16:52 Red Blood Count 3.40 MIL/MM3 3.53 MIL/MM3 (4.00-5.30) (4.00-5.30) Hemoglobin 10.6 GM/DL 11.0 GM/DL (11.6-15.3) (11.6-15.3) Hematocrit 32.2 % 33.1 % (35.0-46.0) (35.0-46.0) Monocytes (%) (Auto) 12.3 % 10.6 % (0.0-8.0) (0.0-8.0) Chloride Level 109 MEQ/L (98-107) Estimat Glomerular Filtration 58 ML/MIN (>89) 44 ML/MIN (>89) Rate Calcium Level 8.2 MG/DL (8.5-10.1) Carbon Dioxide Level 32.8 MEQ/L (21.0-32.0) Creatinine 1.24 MG/DL (0.50-1.00) Blood Gas HCO3 28 mmol/L (22-26) Blood Gas Base Excess 4.9 mmol/L (-2-2) Arterial Blood pH 7.52 (7.380-7.420) Arterial Blood Partial 35 mmHg (38-42) Pressure CO2 Blood Gas Hemoglobin 11.1 G/DL (12.0-16.0) Imaging Last Impressions Chest X-Ray 11/20/16 0800 Signed Impressions: Service Date/Time: November 10:00 - CONCLUSION: Small bilateral pleural effusions again noted which are not significantly changed from the rib series. There is scarring and mild streaky opacity remaining at the lung bases. Brodie Alexander MD Renal Ultrasound 11/18/16 0600 Signed Impressions: Service Date/Time: Friday, November 18, 2016 15:32 - CONCLUSION: 1. No hydronephrosis is seen. 2. 0.8 cm nodule at the left renal stone. 3. The bladder is not seen or distended. 4. Left effusion. Pawan Rios MD Ribs X-Ray 11/18/16 0000 Signed Impressions: Service Date/Time: Friday, November 18, 2016 17:12 - CONCLUSION: 1. Small bilateral pleural effusions, left greater than right with concomitant atelectatic changes in the bases. 2. No fracture or pneumothorax. Waldo Gaines MD Abdomen X-Ray 11/17/16 0600 Signed Impressions: Service Date/Time: Thursday, November 17, 2016 08:06 - CONCLUSION: 1. No renal stones are identified. Ajay Swenson MD Myocardial Perfusion Scan Nuc Med 11/17/16 0000 Signed Impressions: Service Date/Time: Thursday, November 17, 2016 08:31 - CONCLUSION: Negative for stress-induced ischemia.. RISK CATEGORY: Low (<1%% Annual Mortality Rate) Rico Muñoz MD FACR Head CT 11/15/165 Signed Impressions: Service Date/Time: Tuesday, November 15, 2016 22:35 - CONCLUSION: Negative for acute process. Rico Muñoz MD FACR Abdomen/Pelvis CT 11/15/16 2112 Signed Impressions: Service Date/Time: Tuesday, November 15, 2016 21:25 - CONCLUSION: 4 mm partially obstructing stone distal third of the ureter just above the UVJ. Rico Muñoz MD FACR PE at Discharge General: NAD, AAOx3 Chest: Decreased breath sounds at the bases Cardiac: Regular Abd: +BS, soft ND/NT Ext: No edema Hospital Course Cardiac arrest s/p resuscitation Pt presented to [facility] ED with flank pain. CT showed obstructing distal left ureteral stone. She sustained PEA arrest after returning from CT scan, and required 45 secs to restore perfusion rhythm. No signs of allergic reaction. Head CT was normal, CXR clear after arrest. Trop, BNP normal. Pt was transferred to [facility] under the care of the Intensivists. Cardiology was consulted. Pt had a negative Lexiscan (11/17/16). Pt had loop recorder placed by Dr. Ascencio (11/18/16). Pt had Metoprolol 25mg po BID in addition to her Valsartan 80mg daily. She had some complaints of b/l rib pain, possible d/t resuscitation efforts, which improved with ibuprofen. Rib series (11/18) --> Small bilateral pleural effusions, left greater than right with concomitant atelectatic changes in the bases. No fracture or pneumothorax. On 11/19 pt was still requiring supplemental O2. IVF were stopped and pt was given Lasix 40mg IV x one dose with improvement and pt able to be weaned off the O2 prior to discharge. CXR (11/20) with small bilateral pleural effusions again noted which are not significantly changed, some scarring and mild streaky opacity remaining at the lung bases. Pulmonary medicine saw the pt prior to discharge and PFTs were performed but not resulted. Pt was started on Symbicort i puff BID. Pt will need to followup with her PCP, Dr. Adam, in 1 week Pt will need to followup with Dr. Garcia in 1 week for PFT results. Kidney stone on left side Pt had presented to the hospital with left flank pain. CT abd/pelvis (11/15/16) - -> 4mm partially obstructing stone distal third of the ureter just above the UVJ. Urology was consulted. It was felt that the nephrolithiasis will likely pass spontaneously. Pt was started on Flomax following admission until 11/19. Her hematuria resolved. Renal US (11/18) --> No hydronephrosis is seen. 0.8 cm nodule at the left renal stone, bladder is not seen or distended. Urology felt that no further urologic intervention was necessary at the present time and that the patient will require outpatient surveillance of her small left renal calculi and will order a follow up KUB study in one year. Pt can followup with Dr. Carpio in 1 month. Pt Condition on Discharge: Stable Discharge Disposition: Discharge Home Discharge Instructions DIET: Follow Instructions for: Heart Healthy Diet Activities you can perform: Regular-No Restrictions Follow up Referrals: Cardiology - 2 Weeks with Ovidio Gomez MD PCP Follow-up - [address] Gamaliel Adam Pulmonology - 1 Week with Teto Irene MD Urology - 1 Month with Hernandez Carpio MD New Medications: Budesonide-Formoterol Inh (Symbicort Inh) 160-4.5 Mcg/Act Aero 1 PUFF INH Q12HR chronic cough #1 INHALER Metoprolol Tartrate (Metoprolol Tartrate) 25 Mg Tab 25 MG PO Q12HR htn #62 TAB Continued Medications: Fluoxetine (Fluoxetine) 20 Mg Cap 20 MG PO DAILY #30 Ref 0 CAP Valsartan (Valsartan) 80 Mg Tab 80 MG PO DAILY #30 Ref 0 TAB Zolpidem (Zolpidem) 5 Mg Tab 5 MG PO HS PRN INSOMNIA Ref 0 TAB Additional Information Patient examined. Assessment and plan formulated with Rosa Isela Ruffin PA-C. I agree with the above. Rosa Isela Ruffin Nov 21, 2016 17:32 David Noguera DO Nov 27, 2016 23:16
[2016-11-21] MEDS ORDERED: BUDESONIDE-FORMOTEROL 160/4.5 MCG INHALER INH SCH (21:00)
--- NOTE | 2016-11-26 09:53 | RSPPFT ---
DATE OF PROCEDURE: 11/21/16 COMMENTS: Spirometry with FVC of 1.7, FV1 of 1.2 and FEV1/FVC ratio at 73%. A non-significant response to acutely inhaled bronchodilator. IMPRESSION: 1. Moderately severe airways obstruction. 2. Positive but non-significant response to acutely inhaled bronchodilator.
[2016-12-18] MEDS ORDERED: METO25TA3 PO (09:18)
[2017-03-25] MEDS ORDERED: AMBI5TAB PO (15:56)
[2017-03-25] MEDS ORDERED: MULTTAB67 PO (15:56)
[2017-03-25] MEDS ORDERED: VALS1TAB64 PO (15:56)
[2017-03-25] MEDS ORDERED: PROZ20CA11 PO (15:56)
[2017-03-25] MEDS ORDERED: PERC5TAB12 PO (16:23)
== END 2016-11-21 19:12 | disposition home or self-care (01) | DRG 261 ==
LOC: PHED 20:46 → PHEDA 23:01 → N03B 11-16 00:44 → N06A 11-17 02:08
PROVIDERS: ADMIT Surgery Surgical Critical Care; ATTEND Surgery Surgical Critical Care
PROC: 5A12012 Performance of Cardiac Output, Single, Manual (ICD-10-PCS; 2016-11-15)
PROC: 0JH632Z Insertion of Monitoring Device into Chest Subcutaneous Tissue and Fascia, Percutaneous Approach (ICD-10-PCS; principal; 2016-11-18 08:30)
DX: I46.9 Cardiac arrest, cause unspecified (principal); N13.2 Hydronephrosis with renal and ureteral calculous obstruction; J90 Pleural effusion, not elsewhere classified; N17.9 Acute kidney failure, unspecified; I12.9 Hypertensive chronic kidney disease with stage 1 through stage 4 chronic kidney disease, or unspecified chronic kidney disease; E86.0 Dehydration; F41.9 Anxiety disorder, unspecified; F32.9 Major depressive disorder, single episode, unspecified; N18.9 Chronic kidney disease, unspecified; R09.02 Hypoxemia; Z90.710 Acquired absence of both cervix and uterus; Z98.51 Tubal ligation status; R07.81 Pleurodynia; Z23 Encounter for immunization; Z87.442 Personal history of urinary calculi
CPT/HCPCS: 33282; 36600; 51702; 70450; 71010; 71020; 71111; 74000; 74176; 76775; 78452; 80048; 80053; 81001; 82550; 82552; 82805; 83605; 83735; 83880; 84100; 84484; 85025; 85610; 85730; 87040; 87641; 90471; 90732; 92950; 93005; 93017; 93306; 94060; 94150; 96374; 96375; A9502; C1764; G0009; J0690; J0696; J1170; J1644; J1885; J1940; J2250; J2405; J2785; J3010; J7030

== ENCOUNTER → 2016-12-19 | Day surgery (SDC) | payer OTHER ==
[~2016-12-19] VITALS: Ht 157.5 cm; Wt 64.4 kg
[~2016-12-19] MED LIST changes: +*RESP: ALBUTEROL 2.5 MG/3 ML NEB (PRN) PERIprocedural Use ONLY NEB ONE; -AMBI10TA PO; +AMBI5TAB PO; -DIOV80TA4 PO; +DO NOT ADM ANY ANTICOAGULANT DRUGS XX PRN; +EPINEPHrine HCL (1:1000) 1 MG/ML VIAL ONE; +FAMOTIDINE 20 MG/2 ML VIAL ONE; +FLUO20CA4 PO; +INSULIN HUMAN REGULAR 1,000 UNITS/10 ML VIAL SQ PRN; +LACTATED RINGER'S 1000 ML IV SCH; +LIDOCAINE HCL 2% 50 ML VIAL ONE; +METO25TA3 PO; +METOPROLOL TARTRATE 25 MG TAB PO PRN; +MIDAZOLAM HCL 2 MG/2 ML VIAL ONE; +MULTTAB67 PO; +PERC5TAB12 PO; +PROPOFOL 200 MG/20 ML AMP IV ONE; +SODIUM CHLORID 0.9% 500 ML IV SCH; +VALS1TAB64 PO; +ZOLP5TAB3 PO
[2016-12-19 06:32] VITALS: BP 134/87; PULSE 68; RESP 18; TEMP 97.1; O2SAT 95
[2016-12-19 07:00] LABS: AUTOMATED NEUTROPHIL # 4.4 TH/MM3 (1.8-7.7); BASOPHIL % 0.6 % (0.0-2.0); EOSINOPHIL # 0.1 TH/MM3 (0-0.4); EOSINOPHIL % 1.5 % (0.0-4.0); HEMO FLAGS DIFF FINAL; LYMPH % 19.7 % (9.0-44.0); LYMPHOCYTE # 1.3 TH/MM3 (1.0-4.8); MEAN CELL VOLUME 94.3 FL (80.0-100.0); MEAN CORPUSCULAR HGB CONC 32.9 % (32.0-36.0); MONO % 12.8 % (0.0-8.0); NEUT % 65.4 % (16.0-70.0); PLATELET COUNT 227 TH/MM3 (150-450); RED BLOOD COUNT 4.03 MIL/MM3 (4.00-5.30); RED CELL DISTRIBUTION WIDTH 12.9 % (11.6-17.2); WHITE BLOOD COUNT 6.8 TH/MM3 (4.0-11.0)
[2016-12-19 07:06] LABS: APTT (PATIENT) 32.3 SEC (24.3-30.1); PROTHROMBIN TIME - PATIENT 10.8 SEC (9.8-11.6)
--- NOTE | 2016-12-19 09:04 | MR ---
cc: ROSEMARY RILEY M.D. DATE: 12/19/2016 PROCEDURE Fiberoptic bronchoscopy, flexible. REASON FOR BRONCHOSCOPY Question upper airway obstruction. DETAILS OF PROCEDURE Fiberoptic bronchoscopy performed via LMA. Vocal cords visualized appeared intact. Trachea is patent. There is no obvious obstruction or mass lesion identified. Thick mucous plugs whitish in color throughout the tracheobronchial tree noted. Right upper, middle and lower lobe, left upper and lower lobes inspected. Alana looked sharp. Trachea appeared patent. No mass lesion or obstruction identified. Washings were obtained from both sides of the tracheobronchial tree for routine TB and fungal culture as well as cytological exam. IMPRESSION 1. Mild tracheobronchitis. 2. Excess mucoid secretion. 3. No obstruction or mass lesion. 4. Samples obtained as above. 5. Patient transferred to Recovery in stable condition. MD KELLY Ferreira/SYBIL /8:53 AM /8:57 AM
[2016-12-19 09:30] VITALS: BP 137/80; PULSE 78; RESP 16; TEMP 97.6; O2SAT 95
== END | disposition home or self-care (01) ==
LOC: HSDC 05:51
PROVIDERS: ATTEND Internal Medicine Sleep Medicine
DX: J90 Pleural effusion, not elsewhere classified (principal); J40 Bronchitis, not specified as acute or chronic; I10 Essential (primary) hypertension
CPT/HCPCS: 00520; 31622; 85025; 85610; 85730; 87015; 87070; 87102; 87116; 87205; 87206; 94640; J0171; J2250; J7120; J7613

== ENCOUNTER → 2017-01-09 | Outpatient (CLI) | payer OTHER ==
[~2017-01-09] MED LIST changes: -*RESP: ALBUTEROL 2.5 MG/3 ML NEB (PRN) PERIprocedural Use ONLY NEB ONE; -DO NOT ADM ANY ANTICOAGULANT DRUGS XX PRN; -EPINEPHrine HCL (1:1000) 1 MG/ML VIAL ONE; -FAMOTIDINE 20 MG/2 ML VIAL ONE; -INSULIN HUMAN REGULAR 1,000 UNITS/10 ML VIAL SQ PRN; -LACTATED RINGER'S 1000 ML IV SCH; -LIDOCAINE HCL 2% 50 ML VIAL ONE; -METOPROLOL TARTRATE 25 MG TAB PO PRN; -MIDAZOLAM HCL 2 MG/2 ML VIAL ONE; -PROPOFOL 200 MG/20 ML AMP IV ONE; -SODIUM CHLORID 0.9% 500 ML IV SCH
--- NOTE | 2017-01-23 09:25 | RSPPFT ---
DATE OF PROCEDURE: 01/09/17 COMMENTS: Spirometry with FVC of 2.4, FEV1 of 1.9, FEV1/FVC ratio at 78%. TLC is 100% of predicted. Diffusion capacity is 63% of predicted. IMPRESSION: 1. No evidence of airways obstruction. 2. No evidence of airways restriction. 3. Mild reduction in diffusion capacity.
== END ==
LOC: HRSP 08:57
PROVIDERS: ATTEND Internal Medicine Sleep Medicine
DX: R06.02 Shortness of breath (principal)
CPT/HCPCS: 94060; 94726; 94729